=== PATIENT | female | born 1945 | race African-American/Black ===

== ENCOUNTER → 2017-05-05 | Outpatient (CLI) | payer MEDICARE, MEDICAID ==
[2017-05-05 13:14] LABS: ALANINE AMINOTRANSFERASE 27 U/L (9-52); ALBUMIN 4.4 g/dL (3.5-5.0); ALKALINE PHOSPHATASE 103 U/L (38-126); ANION GAP 14 (5-19); ASPARTATE AMINO TRANSFERASE 16 U/L (14-36); BILIRUBIN,DIRECT 0.4 mg/dL (0.0-0.4); BILIRUBIN,TOTAL 0.7 mg/dL (0.2-1.3); BLOOD UREA NITROGEN 15 mg/dL (7-20); CALCIUM 9.7 mg/dL (8.4-10.2); CARBON DIOXIDE 31 mmol/L (22-30); CHLORIDE 98 mmol/L (98-107); CHOLESTEROL 122.49 mg/dL (0-200); CREATININE RESULT 1.08 mg/dL (0.52-1.25); Direct HDL 50 mg/dL (>40); GLUCOSE 154 mg/dL (75-110); POTASSIUM 4.6 mmol/L (3.6-5.0); SODIUM 142.8 mmol/L (137-145); TOTAL PROTEIN 7.8 g/dL (6.3-8.2); TRIGLYCERIDES 111 mg/dL (<150)
[2017-05-05 13:25] LABS: DIRECT LDL 46 mg/dL (<100)
== END ==
LOC: OD 10:29
PROVIDERS: ATTEND Internal Medicine
DX: E78.2 Mixed hyperlipidemia (principal); Z68.42 Body mass index [BMI] 45.0-49.9, adult; I10 Essential (primary) hypertension; E11.43 Type 2 diabetes mellitus with diabetic autonomic (poly)neuropathy; Z79.899 Other long term (current) drug therapy
CPT/HCPCS: 36415; 80053; 80061; 83036

== ENCOUNTER → 2017-05-11 | Outpatient (CLI) | payer MEDICARE, MEDICAID ==
[2017-05-11 10:12] LABS: ABSOLUTE EOSINOPHILS # (AUTO) 0.3 10^3/uL (0.0-0.6); ABSOLUTE MONOCYTES (AUTO) 0.8 10^3/uL (0.1-1.4); BASOPHILS % (AUTO) 0.4 % (0-2); EOSINOPHILS % (AUTO) 2.9 % (0-6); HEMATOCRIT 37.2 % (36.0-47.0); HEMOGLOBIN 11.9 g/dL (12.0-15.5); HGB HCT DIFFERENCE -1.5; LYMPHOCYTES % (AUTO) 36.3 % (13-45); MEAN CORPUSCULAR HEMOGLOBIN 27.3 pg (27.0-33.4); MEAN CORPUSCULAR HGB CONC 32.1 g/dL (32.0-36.0); MEAN CORPUSCULAR VOLUME 85 fl (80-97); MONOCYTES % (AUTO) 6.9 % (3-13); RED BLOOD COUNT 4.37 10^6/uL (3.72-5.28); RED CELL DISTRIBUTION WIDTH 15.8 % (11.5-14.0); SEGMENTED NEUTROPHILS % (AUTO) 53.5 % (42-78); WHITE BLOOD COUNT 11.1 10^3/uL (4.0-10.5)
== END ==
LOC: OD 09:13
PROVIDERS: ATTEND Internal Medicine
DX: E78.2 Mixed hyperlipidemia (principal); I10 Essential (primary) hypertension; E11.43 Type 2 diabetes mellitus with diabetic autonomic (poly)neuropathy; Z68.42 Body mass index [BMI] 45.0-49.9, adult; Z79.899 Other long term (current) drug therapy
CPT/HCPCS: 36415; 82043; 85025

== ENCOUNTER → 2017-09-29 | Outpatient (CLI) | payer MEDICARE, MEDICAID ==
--- NOTE | 2017-09-29 15:22 | RADIOLOGY REPORT (SQ) ---
EXAM DESCRIPTION: CT LUNG CANCER SCREENING COMPLETED DATE/TIME: 09/29/2017 2:37 pm REASON FOR STUDY: Z87.891 PERSONAL HISTORY OF NICOTINE DEPENDENCE Z87.891 PERSONAL HISTORY OF NICOT INE DEPENDENCE Has the patient had a Chest CT scan within the past year? No. Was the patient offered tobacco cessation counseling? Yes. Was the patient engaged in shared decision making for this test? Yes. Does the patient have signs or symptoms of Lung Cancer? No. Is the patient a smoker? No. How many packs per year? 365. How many years since quitting smoking? 6. Patients age: 72. COMPARISON: None. TECHNIQUE: Low Dose CT scan performed of the chest without intravenous contrast for purposes of scre ening for lung cancer. Images reviewed with lung, soft tissue and bone windows. Reconstructed coron al and sagittal MPR images reviewed. All images stored on PACS. All CT scanners at this facility use dose modulation, iterative reconstruction, and/or weight based d osing when appropriate to reduce radiation dose to as low as reasonably achievable (ALARA). [facility]: Dose Right [facility]: CareDose [facility]: Dose Right [facility]: Teradose 4D [facility]: Yoogaia RADIATION DOSE: mGy. . LIMITATIONS: None FINDINGS: LUNGS AND PLEURA: No masses or nodules. No pleural effusions or calcifications. No pne umothorax. No scarring or interstitial changes. HILAR AND MEDIASTINAL STRUCTURES: No identified masses. No abnormal nodes. HEART AND VASCULAR STRUCTURES: No aortic aneurysm. No pericardial effusion. No cardiac devices. CORONARY ARTERY CALCIFICATIONS: No significant calcifications. UPPER ABDOMEN, THYROID, BONES, OTHER SOFT TISSUES: No significant findings. IMPRESSION: NO SIGNIFICANT FINDING IN THE LUNGS ON NON-CONTRASTED CHEST CT. NO OTHER CLINICALLY SIGNIFICANT/POTENTIALLY CLINICALLY SIGNIFICANT FINDINGS LUNGRADS: LUNGRADS: 1 NEGATIVE. NO NODULES, OR DEFINITELY BENIGN NODULES MODIFIER: NONE RECOMMENDATION: Continue annual screening with LDCT in 12 months. COMMENT: CRITERIA: No lung nodules. Nodules with specific calcifications: Complete, central, popcorn, concentric rings and fat containin g nodules. TECHNICAL DOCUMENTATION: JOB ID: [id number] Quality ID # [id number]: Final reports with documentation of one or more dose reduction techniques (e.g., Au tomated exposure control, adjustment of the mA and/or kV according to patient size, use of iterative reconstruction technique) 2010 [facility] [place] Radiology Reading location - IP/workstation name: [email or web address]
== END ==
LOC: RAD 14:54
PROVIDERS: ATTEND Physician Assistant
DX: R06.00 Dyspnea, unspecified (principal); Z87.891 Personal history of nicotine dependence
CPT/HCPCS: G0297

== ENCOUNTER → 2017-10-03 | Outpatient (CLI) | payer MEDICARE, OTHER, MEDICAID ==
[2017-10-03 16:39] LABS: ABSOLUTE BASOPHILS # (AUTO) 0.1 10^3/uL (0.0-0.2); ABSOLUTE EOSINOPHILS # (AUTO) 0.3 10^3/uL (0.0-0.6); ABSOLUTE LYMPHOCYTES (AUTO) 2.4 10^3/uL (0.5-4.7); ABSOLUTE MONOCYTES (AUTO) 0.8 10^3/uL (0.1-1.4); EOSINOPHILS % (AUTO) 2.5 % (0-6); HEMATOCRIT 35.2 % (36.0-47.0); HEMOGLOBIN 11.1 g/dL (12.0-15.5); LYMPHOCYTES % (AUTO) 20.4 % (13-45); MEAN CORPUSCULAR HEMOGLOBIN 26.7 pg (27.0-33.4); MEAN CORPUSCULAR HGB CONC 31.5 g/dL (32.0-36.0); MEAN CORPUSCULAR VOLUME 85 fl (80-97); MONOCYTES % (AUTO) 6.8 % (3-13); PLATELET COUNT 158 10^3/uL (150-450); RED BLOOD COUNT 4.15 10^6/uL (3.72-5.28); RED CELL DISTRIBUTION WIDTH 16.5 % (11.5-14.0); SEGMENTED NEUTROPHILS % (AUTO) 69.3 % (42-78); TOTAL CELLS COUNTED % (AUTO) 100 %; WHITE BLOOD COUNT 11.5 10^3/uL (4.0-10.5)
[2017-10-03 16:40] LABS: ARTERIAL BLOOD BASE EXCESS 3.3 mmol/L; ARTERIAL BLOOD H2CO3 1.38 mmol/L (1.05-1.35); ARTERIAL BLOOD HCO3 28.5 mmol/L (20-26); ARTERIAL BLOOD PCO2 45.8 mmHg (35-45); ARTERIAL BLOOD PH 7.41 (7.35-7.45); ARTERIAL BLOOD TOTAL CO2 29.9 mmol/L (21-25)
[2017-10-03 16:47] LABS: ARTERIAL BLOOD FIO2 ROOM AIR
[2017-10-03 17:03] LABS: ALANINE AMINOTRANSFERASE 22 U/L (9-52); ALBUMIN 3.9 g/dL (3.5-5.0); ALKALINE PHOSPHATASE 89 U/L (38-126); ANION GAP 10 (5-19); ASPARTATE AMINO TRANSFERASE 19 U/L (14-36); BILIRUBIN,DIRECT 0.4 mg/dL (0.0-0.4); BILIRUBIN,TOTAL 0.4 mg/dL (0.2-1.3); BLOOD UREA NITROGEN 12 mg/dL (7-20); CALCIUM 9.2 mg/dL (8.4-10.2); CARBON DIOXIDE 31 mmol/L (22-30); CHLORIDE 101 mmol/L (98-107); CHOLESTEROL 122.14 mg/dL (0-200); GLUCOSE 113 mg/dL (75-110); POTASSIUM 4.1 mmol/L (3.6-5.0); SODIUM 141.7 mmol/L (137-145); TOTAL PROTEIN 7.2 g/dL (6.3-8.2); TRIGLYCERIDES 122 mg/dL (<150)
[2017-10-03 17:13] LABS: DIRECT LDL 52 mg/dL (<100)
[2017-10-04 13:22] LABS: ARTERIAL BLOOD BASE EXCESS 2.8 mmol/L; ARTERIAL BLOOD H2CO3 1.34 mmol/L (1.05-1.35); ARTERIAL BLOOD HCO3 27.8 mmol/L (20-26); ARTERIAL BLOOD O2 SATURATION 88.6 % (94-98); ARTERIAL BLOOD PCO2 44.4 mmHg (35-45); ARTERIAL BLOOD PH 7.41 (7.35-7.45); ARTERIAL BLOOD PO2 54.5 mmHg (80-100); ARTERIAL BLOOD TOTAL CO2 29.1 mmol/L (21-25)
[2017-10-04 13:23] LABS: ARTERIAL BLOOD FIO2 2 L
== END ==
LOC: OD 14:56
PROVIDERS: ATTEND Family Medicine Geriatric Medicine
DX: E11.40 Type 2 diabetes mellitus with diabetic neuropathy, unspecified (principal); E87.6 Hypokalemia; E66.9 Obesity, unspecified; I10 Essential (primary) hypertension; Z29.9 Encounter for prophylactic measures, unspecified; Z68.45 Body mass index [BMI] 70 or greater, adult; R06.02 Shortness of breath; R05 Cough
CPT/HCPCS: 36415; 36600; 80053; 80061; 82803; 83036; 83735; 84443; 85025; 87070; 87205

== ENCOUNTER 2017-11-12 17:57 | Emergency (ER) | payer MEDICARE, MEDICAID ==
--- NOTE | 2017-11-12 18:39 | ER Document Report ---
ED Cardiac - General Mode of Arrival: Ambulatory Information source: Patient TRAVEL OUTSIDE OF THE U.S. IN LAST 30 DAYS: No <MARTHA ALCALA - Last Filed: 11/12/17 18:57> <AZAEL HASSAN - Last Filed: 11/12/17 21:38> - General Chief Complaint: Arrhythmia Stated Complaint: BLOOD PRESSURE CONCERN Time Seen by Provider: 11/12/17 18:24 Notes: Patient is a 72-year-old female who presents to the emergency department today with complaints of a heart racing sensation prior to arrival. Patient states her heart rate was in the 140s prior to arrival here. Patient is status post ablation as she has a history of A. fib. Patient states that her chest feels tight with associated shortness of breath. Patient states she feels that her heart rate is much lower now and her symptoms have essentially resolved. Patient states prior to arrival here, her symptoms felt similar to when she had a stress test in the past. (MARTHA ALCALA) - Related Data Allergies/Adverse Reactions: penicillinase Allergy (Verified 11/12/17 17:57) Penicillins Allergy (Verified 11/12/17 17:57) Past Medical History - General Information source: Patient - Social History Smoking Status: Never Smoker Cigarette use (# per day): No Chew tobacco use (# tins/day): No Frequency of alcohol use: None Drug Abuse: None Lives with: Family Family History: Reviewed & Not Pertinent Patient has suicidal ideation: No Patient has homicidal ideation: No - Past Medical History Cardiac Medical History: Reports: Hx Atrial Fibrillation, Hx Hypercholesterolemia, Hx Hypertension Pulmonary Medical History: Reports: Hx COPD Endocrine Medical History: Reports: Hx Diabetes Mellitus Type 2 Past Surgical History: Reports: Hx Cardiac Catheterization, Hx Cholecystectomy, Hx Orthopedic Surgery <MARTHA ALCALA - Last Filed: 11/12/17 18:57> Review of Systems - Review of Systems Constitutional: No symptoms reported EENT: No symptoms reported Cardiovascular: See HPI, Chest pain, Palpitations, Heart racing Respiratory: See HPI, Short of breath Gastrointestinal: No symptoms reported Genitourinary: No symptoms reported Female Genitourinary: No symptoms reported Musculoskeletal: No symptoms reported Skin: No symptoms reported Hematologic/Lymphatic: No symptoms reported Neurological/Psychological: No symptoms reported -: Yes All other systems reviewed and negative <MARTHA ALCALA - Last Filed: 11/12/17 18:57> - Vital signs Vitals: Temp Pulse Resp BP Pulse Ox 98 F 53 L 18 132/82 H 88 L 11/12/17 18:06 11/12/17 18:06 11/12/17 18:06 11/12/17 18:06 11/12/17 18:06 Course - Laboratory Result Diagrams: 11/12/17 18:15 11/12/17 18:15 <MARTHA ALCALA - Last Filed: 11/12/17 18:57> - Laboratory Result Diagrams: 11/12/17 18:15 11/12/17 18:15 <AZAEL HASSAN - Last Filed: 11/12/17 21:38> - Re-evaluation Re-evalutation: 11/12/17 18:53 Face to face consultation with Dr. Gonzalez (MARTHA ALCALA) 11/12/17 21:00 Patient is a 72-year-old female who presents with rapid A. fib on EKG that is now resolved spontaneously. Patient has had this before and had an ablation a number of years ago in [place]. Patient had some chest pressure but no pain. Patient is on 3 L of oxygen all the time for COPD. Denies any new medication changes. Patient was seen by Dr. Gonzalez in the emergency department. Recommends increasing metoprolol succinate to 100 twice daily. No other changes. He would like to see the patient in his office early next week. Patient is agreeable to this plan. She is feeling much better and is comfortable going home. She will return if she has any chest pain, rapid heart rate, difficulty breathing, or other concerns. Son present for discussion. Stable for discharge. (AZAEL HASSAN) - Vital Signs Vital signs: Temp Pulse Resp BP Pulse Ox 98 F 47 L 18 125/101 H 95 11/12/17 18:06 11/12/17 18:07 11/12/17 18:20 11/12/17 18:20 11/12/17 18:46 - Laboratory Laboratory results interpreted by me: 11/12/17 11/12/17 18:15 18:15 WBC 11.7 H Hgb 11.5 L MCH 26.8 L MCHC 31.5 L RDW 16.1 H Absolute Neutrophils 8.9 H Sodium 145.5 H Est GFR (Non-Af Amer) 55 L Glucose 138 H Critical Care Note - Critical Care Note Total time excluding time spent on procedures (mins): 35 - Evaluation and management of rapid A. fib, consultation with specialist, coordination of follow -up, counseling of patient family <AZAEL HASSAN - Last Filed: 11/12/17 21:38> Discharge <MARTHA ALCALA - Last Filed: 11/12/17 18:57> <AZAEL HASSAN - Last Filed: 11/12/17 21:38> - Discharge Clinical Impression: Rapid atrial fibrillation Condition: Stable Disposition: HOME, SELF-CARE Instructions: Atrial Fibrillation ([facility]) Additional Instructions: Please change your metoprolol to 100 twice a day. Please follow-up with Dr. Gonzalez next week on Tuesday or Tuesday. Please call for an appointment. Make sure that you are wearing your oxygen at all times. Prescriptions: Metoprolol Succinate [Toprol XL 100 mg Tablet] 100 mg PO BID #[id number] tab.sr.[id number] Referrals: SHEREEN KEENE MD [Primary Care Provider] - Follow up as needed CONCHIS GONZALEZ MD [ACTIVE STAFF] - Follow up in 3-5 days Scribe Attestation: 11/12/17 21:37 I personally performed the services described in the documentation, reviewed and edited the documentation which was dictated to the scribe in my presence, and it accurately records my words and actions. (AZAEL HASSAN) Scribe Documentation - Scribe Written by Venicee:: Neel Jackson, 11/12/2017 1907 acting as scribe for :: Sumaya <MARTHA ALCALA - Last Filed: 11/12/17 18:57>
[2017-11-12 19:09] LABS: ABSOLUTE BASOPHILS # (AUTO) 0.1 10^3/uL (0.0-0.2); ABSOLUTE EOSINOPHILS # (AUTO) 0.2 10^3/uL (0.0-0.6); ABSOLUTE LYMPHOCYTES (AUTO) 1.8 10^3/uL (0.5-4.7); ABSOLUTE MONOCYTES (AUTO) 0.7 10^3/uL (0.1-1.4); ABSOLUTE NEUT (AUTO) 8.9 10^3/uL (1.7-8.2); BASOPHILS % (AUTO) 0.9 % (0-2); EOSINOPHILS % (AUTO) 1.6 % (0-6); HEMATOCRIT 36.5 % (36.0-47.0); HEMOGLOBIN 11.5 g/dL (12.0-15.5); LYMPHOCYTES % (AUTO) 15.8 % (13-45); MEAN CORPUSCULAR HEMOGLOBIN 26.8 pg (27.0-33.4); MEAN CORPUSCULAR HGB CONC 31.5 g/dL (32.0-36.0); MEAN CORPUSCULAR VOLUME 85 fl (80-97); MONOCYTES % (AUTO) 5.6 % (3-13); PLATELET COUNT 184 10^3/uL (150-450); RED CELL DISTRIBUTION WIDTH 16.1 % (11.5-14.0); SEGMENTED NEUTROPHILS % (AUTO) 76.1 % (42-78); TOTAL CELLS COUNTED % (AUTO) 100 %; WHITE BLOOD COUNT 11.7 10^3/uL (4.0-10.5)
[2017-11-12 19:16] LABS: ALANINE AMINOTRANSFERASE 20 U/L (9-52); ALBUMIN 4.2 g/dL (3.5-5.0); ALKALINE PHOSPHATASE 92 U/L (38-126); ANION GAP 16 (5-19); ASPARTATE AMINO TRANSFERASE 27 U/L (14-36); BILIRUBIN,DIRECT 0.4 mg/dL (0.0-0.4); BILIRUBIN,TOTAL 0.6 mg/dL (0.2-1.3); BLOOD UREA NITROGEN 18 mg/dL (7-20); CALCIUM 9.4 mg/dL (8.4-10.2); CARBON DIOXIDE 29 mmol/L (22-30); CHLORIDE 101 mmol/L (98-107); CREATINE KINASE 66 U/L (30-135); GLUCOSE 138 mg/dL (75-110); POTASSIUM 3.7 mmol/L (3.6-5.0); SODIUM 145.5 mmol/L (137-145); TOTAL PROTEIN 8.1 g/dL (6.3-8.2)
[2017-11-12 19:27] LABS: CREATINE KINASE MB 0.54 ng/mL (<4.55)
[2017-11-12 19:32] LABS: TROPONIN I < 0.012 ng/mL
--- NOTE | 2017-11-12 19:57 | RADIOLOGY REPORT (SQ) ---
EXAM DESCRIPTION: CHEST SINGLE VIEW COMPLETED DATE/TIME: 11/12/2017 7:01 pm REASON FOR STUDY: CP COMPARISON: 05/08/2015 EXAM PARAMETERS: NUMBER OF VIEWS: One view. TECHNIQUE: Single frontal radiographic view of the chest acquired. RADIATION DOSE: NA LIMITATIONS: None. FINDINGS: LUNGS AND PLEURA: No consolidation, masses or pneumothorax. No pleural effusion. MEDIASTINUM AND HILAR STRUCTURES: Stable. HEART AND VASCULAR STRUCTURES: Heart normal in size. Normal vasculature. BONES: No acute findings. HARDWARE: None in the chest. OTHER: No other significant finding. IMPRESSION: NO ACUTE RADIOGRAPHIC FINDING IN THE CHEST. TECHNICAL DOCUMENTATION: JOB ID: [id number] [place]-72 2010 [employer]- All Rights Reserved Reading location - IP/workstation name: [email or web address]
[2017-11-12 20:20] LABS: APPEARANCE,URINE CLEAR; BILIRUBIN,URINE NEGATIVE (NEGATIVE); COLOR,URINE STRAW; GLUCOSE, URINE NEGATIVE (NEGATIVE); KETONES,URINE NEGATIVE (NEGATIVE); LEUKOCYTE ESTERASE,URINE NEGATIVE (NEGATIVE); NITRITE,URINE NEGATIVE (NEGATIVE); PROTEIN,URINE NEGATIVE (NEGATIVE); URINE SPECIFIC GRAVITY 1.004; UROBILINOGEN,URINE NEGATIVE mg/dL (<2.0)
[2017-11-12 21:38] VITALS: BP 113/69
--- NOTE | 2017-11-13 08:02 | EKG REPORT ---
SEVERITY:- NORMAL ECG - SINUS RHYTHM : Confirmed by: Stefan Kahn MD 13-Nov-2017 08:02:14
--- NOTE | 2017-11-13 08:05 | EKG REPORT ---
SEVERITY:- ABNORMAL ECG - A-FLUTTER W/ PREDOM 2:1 AV BLOCK, A-RATE 263 BORDERLINE PROLONGED QT INTERVAL : Confirmed by: Stefan Kahn MD 13-Nov-2017 08:05:22
== END 2017-11-12 21:38 | disposition home or self-care (01) ==
LOC: ER 17:57
DX: I48.91 Unspecified atrial fibrillation (principal); J44.9 Chronic obstructive pulmonary disease, unspecified; Z99.81 Dependence on supplemental oxygen; R06.02 Shortness of breath; R07.89 Other chest pain; I10 Essential (primary) hypertension; E11.9 Type 2 diabetes mellitus without complications; Z98.890 Other specified postprocedural states; Z88.0 Allergy status to penicillin; Z79.899 Other long term (current) drug therapy
CPT/HCPCS: 36415; 71045; 80053; 81001; 82550; 82553; 84484; 85025; 93005; 93010; 99291

== ENCOUNTER → 2017-11-28 | Outpatient (CLI) | payer MEDICARE, MEDICAID ==
[2017-11-28 15:26] LABS: ARTERIAL BLOOD BASE EXCESS 4.7 mmol/L; ARTERIAL BLOOD FIO2 3L; ARTERIAL BLOOD H2CO3 1.46 mmol/L (1.05-1.35); ARTERIAL BLOOD HCO3 30.1 mmol/L (20-26); ARTERIAL BLOOD O2 SATURATION 92.3 % (94-98); ARTERIAL BLOOD PCO2 48.6 mmHg (35-45); ARTERIAL BLOOD PH 7.41 (7.35-7.45); ARTERIAL BLOOD PO2 63.6 mmHg (80-100); ARTERIAL BLOOD TOTAL CO2 31.6 mmol/L (21-25)
[2017-11-28 15:29] LABS: ABSOLUTE BASOPHILS # (AUTO) 0.1 10^3/uL (0.0-0.2); ABSOLUTE EOSINOPHILS # (AUTO) 0.3 10^3/uL (0.0-0.6); ABSOLUTE LYMPHOCYTES (AUTO) 1.5 10^3/uL (0.5-4.7); ABSOLUTE MONOCYTES (AUTO) 0.6 10^3/uL (0.1-1.4); EOSINOPHILS % (AUTO) 3.2 % (0-6); HEMATOCRIT 35.4 % (36.0-47.0); HEMOGLOBIN 11.2 g/dL (12.0-15.5); LYMPHOCYTES % (AUTO) 15.5 % (13-45); MEAN CORPUSCULAR HEMOGLOBIN 27.2 pg (27.0-33.4); MEAN CORPUSCULAR HGB CONC 31.7 g/dL (32.0-36.0); MEAN CORPUSCULAR VOLUME 86 fl (80-97); MONOCYTES % (AUTO) 6.5 % (3-13); PLATELET COUNT 250 10^3/uL (150-450); RED BLOOD COUNT 4.12 10^6/uL (3.72-5.28); SEGMENTED NEUTROPHILS % (AUTO) 73.8 % (42-78); TOTAL CELLS COUNTED % (AUTO) 100 %; WHITE BLOOD COUNT 9.5 10^3/uL (4.0-10.5)
[2017-11-28 15:46] LABS: ANION GAP 13 (5-19); BLOOD UREA NITROGEN 17 mg/dL (7-20); CALCIUM 9.3 mg/dL (8.4-10.2); CARBON DIOXIDE 30 mmol/L (22-30); CHLORIDE 101 mmol/L (98-107); GLUCOSE 133 mg/dL (75-110); POTASSIUM 4.4 mmol/L (3.6-5.0); SODIUM 144.2 mmol/L (137-145)
== END ==
LOC: OD 14:32
PROVIDERS: ATTEND Family Medicine Geriatric Medicine
DX: I10 Essential (primary) hypertension (principal); Z79.899 Other long term (current) drug therapy; J44.9 Chronic obstructive pulmonary disease, unspecified
CPT/HCPCS: 36415; 36600; 80048; 82803; 83036; 85025

== ENCOUNTER → 2018-03-20 | Outpatient (CLI) | payer MEDICARE, MEDICAID ==
[2018-03-20 18:25] LABS: ABSOLUTE BASOPHILS # (AUTO) 0.2 10^3/uL (0.0-0.2); ABSOLUTE EOSINOPHILS # (AUTO) 0.4 10^3/uL (0.0-0.6); ABSOLUTE LYMPHOCYTES (AUTO) 2.4 10^3/uL (0.5-4.7); ABSOLUTE MONOCYTES (AUTO) 0.9 10^3/uL (0.1-1.4); ABSOLUTE NEUT (AUTO) 7.3 10^3/uL (1.7-8.2); BASOPHILS % (AUTO) 1.4 % (0-2); EOSINOPHILS % (AUTO) 3.8 % (0-6); HEMATOCRIT 32.5 % (36.0-47.0); HEMOGLOBIN 10.5 g/dL (12.0-15.5); LYMPHOCYTES % (AUTO) 21.5 % (13-45); MEAN CORPUSCULAR HEMOGLOBIN 28.1 pg (27.0-33.4); MEAN CORPUSCULAR HGB CONC 32.2 g/dL (32.0-36.0); MEAN CORPUSCULAR VOLUME 88 fl (80-97); MONOCYTES % (AUTO) 7.8 % (3-13); PLATELET COUNT 260 10^3/uL (150-450); RED BLOOD COUNT 3.72 10^6/uL (3.72-5.28); SEGMENTED NEUTROPHILS % (AUTO) 65.5 % (42-78); TOTAL CELLS COUNTED % (AUTO) 100 %; WHITE BLOOD COUNT 11.1 10^3/uL (4.0-10.5)
[2018-03-20 18:46] LABS: ALANINE AMINOTRANSFERASE 14 U/L (9-52); ANION GAP 15 (5-19); BLOOD UREA NITROGEN 41 mg/dL (7-20); CALCIUM 9.4 mg/dL (8.4-10.2); CARBON DIOXIDE 28 mmol/L (22-30); CHLORIDE 101 mmol/L (98-107); CHOLESTEROL 99.95 mg/dL (0-200); GLUCOSE 100 mg/dL (75-110); POTASSIUM 4.8 mmol/L (3.6-5.0); SODIUM 143.9 mmol/L (137-145); TRIGLYCERIDES 78 mg/dL (<150)
[2018-03-20 18:57] LABS: DIRECT LDL 34 mg/dL (<100)
== END ==
LOC: LAB 17:58
PROVIDERS: ATTEND Family Medicine Geriatric Medicine
DX: N18.3 Chronic kidney disease, stage 3 (moderate) (principal); E11.40 Type 2 diabetes mellitus with diabetic neuropathy, unspecified; J44.9 Chronic obstructive pulmonary disease, unspecified; E78.5 Hyperlipidemia, unspecified; Z79.899 Other long term (current) drug therapy
CPT/HCPCS: 36415; 80048; 80061; 82306; 83036; 84460; 85025

== ENCOUNTER → 2018-05-11 | Outpatient (CLI) | payer MEDICARE, MEDICAID ==
--- NOTE | 2018-05-11 15:11 | WOMENS IMAGING REPORT ---
EXAM DESCRIPTION: BILAT SCREENING MAMMO W/CAD COMPLETED DATE/TIME: 05/11/2018 10:16 am REASON FOR STUDY: ROUTINE SCREENING MAMMOGRAM Z12.31 Z12.31 ENCNTR SCREEN MAMMOGRAM FOR MALIGNANT N EOPLASM OF TOMMY COMPARISON: None. TECHNIQUE: Standard craniocaudal and mediolateral oblique views of each breast recorded using FilmTracka l acquisition. LIMITATIONS: None. FINDINGS: No masses, calcifications or architectural distortion. No areas of suspicion. Read with the assistance of CAD. .[facility] - R2 Cenova Version 1.3 .[facility] Imaging - R2 Cenova Version 1.[address] Imaging - R2 Cenova Version 2.4 .[facility]2 Cenova Version 2.4 .[facility] - R2 [employer] Version 9.2 IMPRESSION: NORMAL MAMMOGRAM. BIRADS 1. BREAST DENSITY: a. The breasts are almost entirely fatty. BIRAD: 1 NEGATIVE RECOMMENDATION: ROUTINE SCREENING Please continue yearly bilateral screening mammography/tomosynthesis in April 2019 COMMENT: The patient has been notified of the results by letter per SA requirements. Additional no tification policies are in place for contacting patient with suspicious or incomplete findings. Quality ID #[id number]: The [employer] recommends an annual screening mammogram for women aged 40 years or over. This facility utilizes a reminder system to ensure that all patients receive reminder letters, and/or direct phone calls for appointments. This includes reminders for routine scr eening mammograms, diagnostic mammograms, or other Breast Imaging Interventions when appropriate. Th is patient will be placed in the appropriate reminder system. The [employer] (ACR) has developed recommendations for screening MRI of the breast s in certain patient populations, to be used in conjunction with mammography. Breast MRI surveillanc e may be appropriate for women with more than 20% lifetime risk of developing breast cancer as deter mined by genetic testing, significant family history of the disease, or history of mantle radiation f or Hodgkins Disease. ACR Practice Guidelines 2008. TECHNICAL DOCUMENTATION: FINDING NUMBER: (1) ASSESSMENT: (1) JOB ID: [id number] [employer]- All Rights Reserved Reading location - IP/workstation name: [email or web address]
== END ==
LOC: WI 09:32
PROVIDERS: ATTEND Family Medicine Geriatric Medicine
DX: Z12.31 Encounter for screening mammogram for malignant neoplasm of breast (principal)
CPT/HCPCS: 77067

== ENCOUNTER → 2018-09-05 | Outpatient (CLI) | payer MEDICARE, MEDICAID ==
--- NOTE | 2018-09-05 15:22 | RADIOLOGY REPORT (SQ) ---
EXAM DESCRIPTION: U/S RETROPERITON (RENAL/AORTA) COMPLETED DATE/TIME: 09/05/2018 3:04 pm REASON FOR STUDY: N18.2 CHRONIC KIDNEY DISEASE, STAGE 3 (MODERATE) N18.3 CHRONIC KIDNEY DISEASE, ST AGE 3 (MODERATE) COMPARISON: 09/08/2015. TECHNIQUE: Dynamic and static grayscale images acquired of the kidneys and bladder and recorded on P ACS. Additional selected color Doppler and spectral images recorded. LIMITATIONS: None. FINDINGS: RIGHT KIDNEY: Normal size. Normal echogenicity. No solid or suspicious masses. No hydronep hrosis. No calcifications. LEFT KIDNEY: Normal size. Normal echogenicity. No solid or suspicious masses. No hydronephrosis. No calcifications. BLADDER: Incompletely filled. No masses. OTHER FINDINGS: No other significant finding. IMPRESSION: NORMAL RENAL AND BLADDER ULTRASOUND. TECHNICAL DOCUMENTATION: JOB ID: [id number] [employer]- All Rights Reserved Reading location - IP/workstation name: [email or web address]
== END ==
LOC: RAD 15:53
PROVIDERS: ATTEND Internal Medicine Nephrology
DX: N18.2 Chronic kidney disease, stage 2 (mild) (principal)
CPT/HCPCS: 76770

== ENCOUNTER → 2018-09-19 | Outpatient (CLI) | payer MEDICARE, MEDICAID, OTHER ==
[2018-09-19 19:23] LABS: ABSOLUTE BASOPHILS # (AUTO) 0.1 10^3/uL (0.0-0.2); ABSOLUTE EOSINOPHILS # (AUTO) 0.2 10^3/uL (0.0-0.6); ABSOLUTE LYMPHOCYTES (AUTO) 1.6 10^3/uL (0.5-4.7); ABSOLUTE MONOCYTES (AUTO) 0.6 10^3/uL (0.1-1.4); ABSOLUTE NEUT (AUTO) 6.9 10^3/uL (1.7-8.2); BASOPHILS % (AUTO) 0.8 % (0-2); EOSINOPHILS % (AUTO) 2.6 % (0-6); HEMATOCRIT 32.3 % (36.0-47.0); HEMOGLOBIN 10.5 g/dL (12.0-15.5); LYMPHOCYTES % (AUTO) 17.1 % (13-45); MEAN CORPUSCULAR HEMOGLOBIN 27.9 pg (27.0-33.4); MEAN CORPUSCULAR HGB CONC 32.6 g/dL (32.0-36.0); MEAN CORPUSCULAR VOLUME 86 fl (80-97); MONOCYTES % (AUTO) 5.9 % (3-13); PLATELET COUNT 270 10^3/uL (150-450); RED BLOOD COUNT 3.77 10^6/uL (3.72-5.28); RED CELL DISTRIBUTION WIDTH 15.1 % (11.5-14.0); SEGMENTED NEUTROPHILS % (AUTO) 73.6 % (42-78); TOTAL CELLS COUNTED % (AUTO) 100 %; WHITE BLOOD COUNT 9.3 10^3/uL (4.0-10.5)
[2018-09-19 19:26] LABS: ABSOLUTE BASOPHILS # (AUTO) 0.1 10^3/uL (0.0-0.2); ABSOLUTE EOSINOPHILS # (AUTO) 0.2 10^3/uL (0.0-0.6); ABSOLUTE LYMPHOCYTES (AUTO) 1.6 10^3/uL (0.5-4.7); ABSOLUTE MONOCYTES (AUTO) 0.6 10^3/uL (0.1-1.4); ABSOLUTE NEUT (AUTO) 6.9 10^3/uL (1.7-8.2); BASOPHILS % (AUTO) 0.8 % (0-2); EOSINOPHILS % (AUTO) 2.6 % (0-6); HEMATOCRIT 32.3 % (36.0-47.0); HEMOGLOBIN 10.5 g/dL (12.0-15.5); LYMPHOCYTES % (AUTO) 17.1 % (13-45); MEAN CORPUSCULAR HEMOGLOBIN 27.9 pg (27.0-33.4); MEAN CORPUSCULAR HGB CONC 32.6 g/dL (32.0-36.0); MEAN CORPUSCULAR VOLUME 86 fl (80-97); MONOCYTES % (AUTO) 5.9 % (3-13); PLATELET COUNT 270 10^3/uL (150-450); RED BLOOD COUNT 3.77 10^6/uL (3.72-5.28); RED CELL DISTRIBUTION WIDTH 15.1 % (11.5-14.0); SEGMENTED NEUTROPHILS % (AUTO) 73.6 % (42-78); TOTAL CELLS COUNTED % (AUTO) 100 %; WHITE BLOOD COUNT 9.3 10^3/uL (4.0-10.5)
[2018-09-19 19:33] LABS: APPEARANCE,URINE CLEAR; BILIRUBIN,URINE NEGATIVE (NEGATIVE); COLOR,URINE STRAW; GLUCOSE, URINE NEGATIVE (NEGATIVE); KETONES,URINE NEGATIVE (NEGATIVE); LEUKOCYTE ESTERASE,URINE NEGATIVE (NEGATIVE); NITRITE,URINE NEGATIVE (NEGATIVE); PROTEIN,URINE NEGATIVE (NEGATIVE); URINE SPECIFIC GRAVITY 1.006; UROBILINOGEN,URINE NEGATIVE mg/dL (<2.0)
[2018-09-19 19:46] LABS: ALANINE AMINOTRANSFERASE 27 U/L (9-52); ALBUMIN 4.7 g/dL (3.5-5.0); ALKALINE PHOSPHATASE 91 U/L (38-126); ANION GAP 15 (5-19); ASPARTATE AMINO TRANSFERASE 19 U/L (14-36); BILIRUBIN,DIRECT 0.2 mg/dL (0.0-0.4); BILIRUBIN,TOTAL 0.5 mg/dL (0.2-1.3); BLOOD UREA NITROGEN 31 mg/dL (7-20); CALCIUM 9.7 mg/dL (8.4-10.2); CARBON DIOXIDE 29 mmol/L (22-30); CHLORIDE 96 mmol/L (98-107); CHOLESTEROL 118.91 mg/dL (0-200); GLUCOSE 90 mg/dL (75-110); POTASSIUM 4.6 mmol/L (3.6-5.0); SODIUM 139.7 mmol/L (137-145); TOTAL PROTEIN 7.8 g/dL (6.3-8.2); TRIGLYCERIDES 122 mg/dL (<150)
[2018-09-19 19:57] LABS: DIRECT LDL 52 mg/dL (<100)
[2018-09-19 20:25] LABS: IRON(TIBC) 38.9 ug/dL (37-170)
[2018-09-19 21:11] LABS: ALANINE AMINOTRANSFERASE 27 U/L (9-52); ALBUMIN 4.7 g/dL (3.5-5.0); ALKALINE PHOSPHATASE 91 U/L (38-126); ANION GAP 15 (5-19); ASPARTATE AMINO TRANSFERASE 19 U/L (14-36); BILIRUBIN,DIRECT 0.2 mg/dL (0.0-0.4); BILIRUBIN,TOTAL 0.5 mg/dL (0.2-1.3); BLOOD UREA NITROGEN 31 mg/dL (7-20); CALCIUM 9.7 mg/dL (8.4-10.2); CARBON DIOXIDE 29 mmol/L (22-30); CHLORIDE 96 mmol/L (98-107); GLUCOSE 90 mg/dL (75-110); POTASSIUM 4.6 mmol/L (3.6-5.0); SODIUM 139.7 mmol/L (137-145); TOTAL PROTEIN 7.8 g/dL (6.3-8.2)
[2018-09-21 11:40] LABS: CREATININE URINE 23.8 mg/dL (Not Estab.); MICROALBUMIN URINE 3.9 ug/mL (Not Estab.)
[2018-09-21 16:39] LABS: ALBUMIN 2 3.9 g/dL (2.9-4.4); BETA GLOBULINS 1.2 g/dL (0.7-1.3); GAMMA GLOBULIN 1.5 g/dL (0.4-1.8); MONOCLONAL SPIKE Not Observed g/dL (Not Observ); PROTEIN TOTAL SERUM 7.9 g/dL (6.0-8.5)
== END ==
LOC: LAB 18:52
PROVIDERS: ATTEND Internal Medicine Nephrology
DX: E78.5 Hyperlipidemia, unspecified (principal); E11.41 Type 2 diabetes mellitus with diabetic mononeuropathy; N18.3 Chronic kidney disease, stage 3 (moderate); D64.9 Anemia, unspecified; I12.9 Hypertensive chronic kidney disease with stage 1 through stage 4 chronic kidney disease, or unspecified chronic kidney disease; Z79.899 Other long term (current) drug therapy
CPT/HCPCS: 36415; 80053; 80061; 81001; 82043; 82570; 82728; 83036; 83540; 83550; 83735; 84165; 84443; 85025

== ENCOUNTER → 2018-12-20 | Outpatient (CLI) | payer MEDICARE, MEDICAID ==
[2018-12-20 15:12] LABS: HEMATOCRIT 29.6 % (36.0-47.0); HEMOGLOBIN 9.4 g/dL (12.0-15.5); MEAN CORPUSCULAR HEMOGLOBIN 26.7 pg (27.0-33.4); MEAN CORPUSCULAR HGB CONC 31.7 g/dL (32.0-36.0); MEAN CORPUSCULAR VOLUME 84 fl (80-97); PLATELET COUNT 271 10^3/uL (150-450); RED BLOOD COUNT 3.52 10^6/uL (3.72-5.28); RED CELL DISTRIBUTION WIDTH 16.6 % (11.5-14.0); WHITE BLOOD COUNT 9.4 10^3/uL (4.0-10.5)
[2018-12-20 15:36] LABS: ANION GAP 10 (5-19); BLOOD UREA NITROGEN 22 mg/dL (7-20); CALCIUM 9.4 mg/dL (8.4-10.2); CARBON DIOXIDE 29 mmol/L (22-30); CHLORIDE 103 mmol/L (98-107); GLUCOSE 89 mg/dL (75-110); PHOSPHORUS 4.5 mg/dL (2.5-4.5); POTASSIUM 4.3 mmol/L (3.6-5.0); SODIUM 142.4 mmol/L (137-145)
== END ==
LOC: LAB 14:43
PROVIDERS: ATTEND Internal Medicine Nephrology
DX: N18.3 Chronic kidney disease, stage 3 (moderate) (principal); D63.1 Anemia in chronic kidney disease
CPT/HCPCS: 36415; 80048; 82728; 83540; 83550; 83735; 83970; 84100; 85027

== ENCOUNTER 2018-12-26 13:29 | Outpatient (CLI) | payer MEDICARE, MEDICAID ==
[~2018-12-26 13:29] MED LIST: FERRIC CARBOXYMALTOSE 750 MG in NORMAL SALINE 250 ML IV PRN
[2018-12-26 14:27] VITALS: BP 127/72
== END 2018-12-26 15:20 | disposition home or self-care (01) ==
LOC: II 13:29 → 5TH 14:17 → II 15:20
PROVIDERS: ATTEND Internal Medicine Nephrology
PROC: 3E033GC Introduction of Other Therapeutic Substance into Peripheral Vein, Percutaneous Approach (ICD-10-PCS; principal; 2018-12-26)
DX: D50.8 Other iron deficiency anemias (principal)
CPT/HCPCS: 96365; J7050; J1439

== ENCOUNTER 2019-01-24 08:32 | Outpatient (CLI) | payer MEDICARE, MEDICAID ==
[2019-01-24 08:53] VITALS: BP 108/50
== END 2019-01-24 09:44 | disposition home or self-care (01) ==
LOC: II 08:32 → 5TH 08:34 → II 09:44
PROVIDERS: ATTEND Internal Medicine Nephrology
PROC: 3E033GC Introduction of Other Therapeutic Substance into Peripheral Vein, Percutaneous Approach (ICD-10-PCS; principal; 2019-01-24)
DX: D50.8 Other iron deficiency anemias (principal)
CPT/HCPCS: 96365; J7050; J1439

== ENCOUNTER 2019-02-20 17:47 | Inpatient (IN) | payer MEDICARE, MEDICAID ==
[2019-02-20] MEDS ORDERED: GABAPENTIN 300 MG CAPSULE PO ONE ×2 (18:03→18:18)
--- NOTE | 2019-02-20 18:03 | ER Document Report ---
ED General - General Stated Complaint: LEFT LEG NUMBNESS Time Seen by Provider: 02/20/19 17:56 Primary Care Provider: Mikki KIM MD [ACTIVE STAFF] - Follow up as needed TRAVEL OUTSIDE OF THE U.S. IN LAST 30 DAYS: No - HPI Patient complains to provider of: left foot numbness Onset: Yesterday Notes: 73 y/o presenting to ED for evaluation of left foot numbness that she noted at first yesterday she has had difficulty walking today due to that numbness she denies a h/o cva she denies headache she reports chronic lower back pain no fever, ivdu she denies incontinence of bladder or stool - Related Data Allergies/Adverse Reactions: penicillinase Allergy (Verified 11/12/17 17:57) Penicillins Allergy (Verified 11/12/17 17:57) Past Medical History - Social History Smoking Status: Unknown if Ever Smoked Family History: Reviewed & Not Pertinent - Past Medical History Cardiac Medical History: Reports: Hx Atrial Fibrillation, Hx Hypercholesterolemia, Hx Hypertension Pulmonary Medical History: Reports: Hx COPD Endocrine Medical History: Reports: Hx Diabetes Mellitus Type 2 Renal/ Medical History: Denies: Hx Peritoneal Dialysis Past Surgical History: Reports: Hx Cardiac Catheterization, Hx Cholecystectomy, Hx Orthopedic Surgery Review of Systems - Review of Systems Constitutional: No symptoms reported EENT: No symptoms reported Cardiovascular: No symptoms reported Respiratory: No symptoms reported Gastrointestinal: No symptoms reported Genitourinary: No symptoms reported Female Genitourinary: No symptoms reported Musculoskeletal: No symptoms reported Skin: No symptoms reported Hematologic/Lymphatic: No symptoms reported Neurological/Psychological: Weakness, Numbness Physical Exam - Vital signs Interpretation: Normal - General General appearance: Appears well, Alert - HEENT Head: Normocephalic, Atraumatic Eyes: Normal Pupils: PERRL - Respiratory Respiratory status: No respiratory distress Chest status: Nontender Breath sounds: Normal Chest palpation: Normal - Cardiovascular Rhythm: Regular Heart sounds: Normal auscultation Murmur: No - Abdominal Inspection: Normal Distension: No distension Bowel sounds: Normal Tenderness: Nontender Organomegaly: No organomegaly - Back Back: Normal, Nontender - Extremities General upper extremity: Normal inspection, Nontender, Normal color, Normal ROM, Normal temperature General lower extremity: Normal inspection, Nontender, Normal color, Normal ROM, Normal temperature, Normal weight bearing. No: Cheryl's sign - Neurological Neuro grossly intact: Yes Cognition: Normal Orientation: AAOx4 [place] Coma Scale Eye Opening: Spontaneous [place] Coma Scale Verbal: Oriented [place] Coma Scale Motor: Obeys Commands [place] Coma Scale Total: 15 Speech: Normal Motor strength normal: LUE, RUE, RLE. No: LLE - weak in LLE w/ subjective diminished sensation Sensory: Other - decreased sensation only in foot - Psychological Associated symptoms: Normal affect, Normal mood - Skin Skin Temperature: Warm Skin Moisture: Dry Skin Color: Normal Course - Re-evaluation Re-evalutation: 02/20/19 20:38 patient now states she cannot lift her leg. she had previously only noted difficulty w/ numbness in the foot itself 02/20/19 20:41 patient's labs and DVT study are all negative on re-evaluation she now tells me she cannot lift the leg itself off of the bed she denies any change to back pain, fever, ivdu she denies any upper extremity symptoms or visual or speech changes her LKWT is at some point yesterday so not considered for lytics if cva is present unclear at this point whether this is a spinal cord issue or brain issue 02/20/19 20:53 given concern for possible spinal lesion vs possible cva, i have requested MRI of L spine and brain out of ED to further delineate ongoing pathology. no improvement w/ gabapentin - actually has worsened while here prompting further workup as above. 02/20/19 21:48 patient's imaging results signed out to Dr Louis - Laboratory Result Diagrams: 02/20/19 18:54 02/20/19 18:54 Laboratory results interpreted by me: 02/20/19 02/20/19 18:54 18:54 WBC 11.5 H Hgb 10.4 L Hct 32.8 L MCHC 31.6 L RDW 17.9 H Absolute Neutrophils 8.6 H Creatinine 1.33 H Est GFR ( Amer) 47 L Est GFR (Non-Af Amer) 39 L Discharge - Discharge Clinical Impression: Numbness in left leg, Weakness of left lower extremity Condition: Stable Disposition: OTHER Referrals: Mikki KIM MD [ACTIVE STAFF] - Follow up as needed
[2019-02-20 19:12] LABS: ABSOLUTE BASOPHILS # (AUTO) 0.1 10^3/uL (0.0-0.2); ABSOLUTE EOSINOPHILS # (AUTO) 0.2 10^3/uL (0.0-0.6); ABSOLUTE LYMPHOCYTES (AUTO) 1.6 10^3/uL (0.5-4.7); ABSOLUTE NEUT (AUTO) 8.6 10^3/uL (1.7-8.2); BASOPHILS % (AUTO) 0.9 % (0-2); HEMATOCRIT 32.8 % (36.0-47.0); HEMOGLOBIN 10.4 g/dL (12.0-15.5); LYMPHOCYTES % (AUTO) 13.9 % (13-45); MEAN CORPUSCULAR HEMOGLOBIN 27.4 pg (27.0-33.4); MEAN CORPUSCULAR HGB CONC 31.6 g/dL (32.0-36.0); MEAN CORPUSCULAR VOLUME 87 fl (80-97); MONOCYTES % (AUTO) 8.6 % (3-13); PLATELET COUNT 304 10^3/uL (150-450); RED BLOOD COUNT 3.78 10^6/uL (3.72-5.28); RED CELL DISTRIBUTION WIDTH 17.9 % (11.5-14.0); SEGMENTED NEUTROPHILS % (AUTO) 74.6 % (42-78); TOTAL CELLS COUNTED % (AUTO) 100 %; WHITE BLOOD COUNT 11.5 10^3/uL (4.0-10.5)
[2019-02-20 19:32] LABS: ALBUMIN 3.9 g/dL (3.5-5.0); ALKALINE PHOSPHATASE 88 U/L (38-126); ANION GAP 10 (5-19); ASPARTATE AMINO TRANSFERASE 14 U/L (14-36); BILIRUBIN,DIRECT 0.3 mg/dL (0.0-0.4); BILIRUBIN,TOTAL 0.3 mg/dL (0.2-1.3); BLOOD UREA NITROGEN 20 mg/dL (7-20); CALCIUM 8.9 mg/dL (8.4-10.2); CARBON DIOXIDE 29 mmol/L (22-30); CHLORIDE 101 mmol/L (98-107); GLUCOSE 88 mg/dL (75-110); POTASSIUM 4.4 mmol/L (3.6-5.0); TOTAL PROTEIN 7.3 g/dL (6.3-8.2)
[2019-02-20] MEDS ORDERED: LORAZEPAM INJ 2 MG/1 ML VIAL IV ONE (21:36)
[2019-02-20] MEDS ORDERED: LORAZEPAM 1 MG TABLET PO ONE (21:40)
--- NOTE | 2019-02-20 21:46 | RADIOLOGY REPORT (SQ) ---
3 VIEWS OF LUMBAR SPINE EXAM DATE: 02/20/2019 12:00 AM CDT HISTORY: Lower back pain. COMPARISON: None. FINDINGS: Generalized osteopenia is present. Multilevel degenerative disc disease and facet arthropathy throughout the lumbar spine. Straightening of the normal lumbar lordosis. No definite evidence of acute compression fracture although evaluation is limited. The sacroiliac joints are preserved. IMPRESSION: No acute findings are seen. However, please note that the generalized osteopenia limits evaluation for subtle or nondisplaced fractures. Consider cross-sectional imaging if there is high clinical concern or point tenderness.
--- NOTE | 2019-02-20 21:48 | RADIOLOGY REPORT (SQ) ---
CT HEAD WITHOUT IV CONTRAST EXAM DATE: 02/20/2019 12:00 AM CDT HISTORY: Left leg weakness. COMPARISON: None. TECHNIQUE: CT scan of the brain without IV contrast. This exam was performed according to our departmental dose-optimization program, which includes automated exposure control, adjustment of the mA and/or kV according to patient size and/or use of iterative reconstruction technique. FINDINGS: There are scattered areas of hypoattenuation within the periventricular white matter, which likely represent chronic microvascular ischemia. No evidence of acute infarction, intracranial hemorrhage, extra-axial fluid collection, or midline shift. No air-fluid levels are seen in the paranasal sinuses to suggest acute sinusitis. No depressed skull fracture. IMPRESSION: No acute intracranial findings are seen. Please note that MRI is more sensitive for the evaluation of early infarction, and may be performed if there is high clinical concern.
--- NOTE | 2019-02-20 22:40 | RADIOLOGY REPORT (SQ) ---
EXAM DESCRIPTION: US EXTREMITY VEINS BILATERAL COMPLETED DATE/TME: 02/20/2019 00:00 CLINICAL HISTORY: pain COMPARISON: None Available TECHNIQUE: Duplex images of the common femoral, greater saphenous, superficial femoral, popliteal, peroneal, and posterior tibial veins of both lower extremities were submitted. FINDINGS: The distal superficial femoral veins were not visualized. The right peroneal vein was not visualized. All of the above-mentioned venous structures demonstrate normal spontaneous flow with respiratory phasicity and were fully compressible. IMPRESSION: No sonographic evidence of acute DVT within the lower extremities.
--- NOTE | 2019-02-20 23:24 | RADIOLOGY REPORT (SQ) ---
EXAM DESCRIPTION: MR LUMBAR SPINE WITHOUT IV CONTRAST COMPLETED DATE/TME: 02/20/2019 00:00 CLINICAL HISTORY: 73 years Female left leg weakness/numbness COMPARISON: None. TECHNIQUE: Multiplanar and multisequence imaging obtained through the lumbar spine without IV contrast. FINDINGS: There is straightening of the normal lordosis with mild reversal centered at L3-L4. There is reactive endplate change throughout the lower thoracic and the lumbar spine. Conus ends at L1. There is loss of height and signal in the lumbar disc interspaces consistent with disc desiccation. There is high signal in the L3-L4 disc interspace. There is no adjacent destruction of the or edema in the vertebral bodies.. Recommend correlation with sedimentation rate if there is concern for discitis. There appears to be disc bulging and spinal stenosis at the level of T11-T12 with moderate to severe narrowing of the canal. No axial imaging of this region was provided. Bilateral neural foraminal stenosis is noted. T12-L1: Bilateral neural foraminal stenosis and mild central canal stenosis. L1-L2: Generalized bulging of the disc and facet arthropathy with mild narrowing of the central canal and bilateral neural foraminal stenosis. L2-3: Generalized bulging of the disc and moderate facet arthropathy. There is mild central canal stenosis and bilateral neural foraminal narrowing. L3-4: Generalized bulging of the disc and moderate to marked facet arthropathy. There is mild narrowing of the central canal. There is moderate left and severe right neural foraminal stenosis. L4-5: Bulging of the disc and facet arthropathy with mild narrowing of the central canal. There is moderate left and severe right neural foraminal stenosis. L5-S1: There is a central disc herniation which results in severe narrowing of the central canal. There is severe bilateral neural foraminal stenosis particularly on the left. Disc herniation likely also impinges on the left S1 nerve root. IMPRESSION: Extensive degenerative change in the lumbar spine as delineated above Generalized bulging of the disc and conjunction with a central disc herniation at L5-S1 which results in severe narrowing of the central canal and severe bilateral neural foraminal stenosis worse on the left with probable impingement on the left S1 nerve root High signal in the disc interspace at the L3-L4 level on the right. Suspect that this is related to degenerative change. Recommend correlation with sedimentation rate and postcontrast imaging if there is concern for discitis
--- NOTE | 2019-02-20 23:39 | RADIOLOGY REPORT (SQ) ---
EXAM DESCRIPTION: MR BRAIN WITHOUT IV CONTRAST COMPLETED DATE/TME: 02/20/2019 20:45 CLINICAL HISTORY: left leg weakness/numbness COMPARISON: CT 02/20/2019 TECHNIQUE: Multiplanar images of the brain were obtained without the administration of intravenous contrast FINDINGS: There is generalized atrophy. No midline shift or mass effect. No evidence of restricted diffusion to suggest acute infarct. Symmetric flow voids in the carotid siphons. There is mild periventricular white matter disease and microvascular ischemic change. No evidence of extra-axial fluid collection. IMPRESSION: No evidence to suggest acute infarct Mild age-related atrophy with mild periventricular white matter disease and microvascular ischemic changes
[2019-02-21] MEDS ORDERED: HYDROCODONE/ACETAMINOPHEN 5-325 MG TABLET PO ONE ×2 (01:29→08:40)
--- NOTE | 2019-02-21 02:39 | ER Document Report ---
Doctor's Note Notes: 02/21/19 02:36 The non-contrasted MRI of the head was unremarkable, the lumbar spine showed a high signal in the L3-4 disc interspace and a central disc herniation at L5-S1 level with probable impingement on the left S1 nerve root. These findings do correlate with the patient's description of pain and numbness to the left lateral calf and lateral foot. Reviewing the records from earlier this evening, it was noted that at some point she had developed an inability to lift the left lower extremity, and for this reason the MRIs were done. At this time she is able to lift the leg off of the stretcher barely, but states that it is much improved from previously. She thinks it may be because of the pain medication she got recently as to why she is now able to lift her leg up. A sed rate was done which was 97, there are no previous sed rate for comparison. A CRP will be added to see if there is more evidence that this may be a discitis at the L3-4 level. 02/21/19 03:16 CRP is 38.9, I discussed the MRI scan with the radiologist hollow tile partition erector and she did not think the MRI was that suspect for discitis, however there is no good explanation for the elevated sed rate and CRP, so she recommended a post contrasted MRI to rule out discitis. This was ordered for 7 AM this morning. (RACHEL ANDREW) Discharge - Discharge Admitting Provider: Alejandra (Hospitalist) Unit Admitted: Medical Floor - Discharge Clinical Impression: Numbness in left leg, Weakness of left lower extremity Condition: Stable Disposition: ADMITTED INPATIENT Instructions: Numbness or Paresthesia ([facility]) Additional Instructions: Please call your family physician as soon as possible to arrange an appointment for tomorrow. Referrals: Mikki KIM MD [ACTIVE STAFF] - Follow up as needed
[2019-02-21 02:46] LABS: C-REACTIVE PROTEIN 38.9 mg/L (<10.0)
[2019-02-21] MEDS ORDERED: LORAZEPAM 1 MG TABLET PO ONE ×3 (09:26→13:44)
--- NOTE | 2019-02-21 14:35 | RADIOLOGY REPORT (SQ) ---
EXAM DESCRIPTION: MRI LUMBAR SPINE WITH COMPLETED DATE/TIME: 02/21/2019 2:16 pm REASON FOR STUDY: post contrast MRI discitis L3-4 COMPARISON: Same day MRI TECHNIQUE: Limited postcontrast axial and sagittal T1 weighted postcontrast images were obtained fol lowing MRI without contrast dated 02/20/2019. CONTRAST TYPE AND DOSE: 20 cc mL Dotarem. RENAL FUNCTION: Not indicated. ACR Type II contrast agent associated with few, if any, unconfounded cases of NSF LIMITATIONS: Limited postcontrast imaging. FINDINGS: VISUALIZED UPPER ABDOMEN: Limited evaluation. No acute or suspicious findings suggested. SEGMENTATION: No transitional anatomy. The lowest well-developed disc space is labeled L5-S1. ALIGNMENT: Straightening of the normal lumbar lordosis. VERTEBRAE: Intact. No fractures. BONE MARROW: No marrow replacing process. Mild chronic appearing Modic endplate changes throughout t he lumbar spine. DISC SIGNAL: Mild multilevel disc height loss and disc bulges, better evaluated on prior MRI. POSTERIOR ELEMENTS: Generally intact. No pars defect evident. SOFT TISSUES: No aortic aneurysm seen. No bulky retroperitoneal adenopathy or mass. No paraspinal mas s or fluid. LOWER THORACIC: Incompletely imaged. No stenosis seen. SACRUM: Visualized upper sacrum intact. ENHANCEMENT: Post contrast sagittal axial T1 images were obtained demonstrating no significant enhanc ement within the L3-4 disc space or endplates. OTHER: No other significant findings. IMPRESSION: 1. Postcontrast images without significant abnormal enhancement within the L3-4 disc sp brittany or endplates to suggest discitis. 2. Multilevel degenerative changes and disc bulges, better delineated on recent prior dedicated lumb ar MRI. TECHNICAL DOCUMENTATION: JOB ID: [id number] [employer]- All Rights Reserved Reading location - IP/workstation name: [email or web address]
--- NOTE | 2019-02-21 14:42 | ER Document Report ---
Doctor's Note Notes: 02/21/19 14:40 6 years this patient was turned over to me at the beginning of my shift. In short, this is an obese patient who presented with increased back pain and inability to move her left leg. She had an MRI that was concerning for discitis. She had further blood work, including markedly elevated CRP and sed rate, which could not rule out the diagnosis of discitis. She was waiting for an IV contrasted MRI to be performed. Unfortunately, multiple IVs were placed in the blue. The patient was unable to complete to the IV contrasted MRI during the course of my shift. I was notified approximately 30 minutes after the end of my shift at this MRI was in fact completed, with contrast. It is still waiting read. Patient is able to move her left lower extremity, she states is better when she receives her pain medication. She is [place] on fentanyl and [place] at home. Awaiting final disposition of patient based on MRI findings. If the patient does not have discitis, it is reasonable for her to be discharged home with close follow-up. (DAREN CASE) 02/21/19 16:26 Patient's MRI comes back unremarkable for any acute pathology. I discussed discharge with the patient but she tells me that her left foot is very painful and she is unable to bear weight on it. At this time I will order an x-ray of the left foot. The left foot has a excellent 2+ dorsalis pedis pulse. She can flex and extend all toes on the left foot. The left foot has a normal temperature and color. The ankle joint has no effusion. 02/21/19 17:[address] a postop shoe on the patient. Patient's foot x-ray was negative. Patient's foot is red swollen and very tender. Exam does seem to be consistent with gout. Patient will not be able to tolerate crutches. At this time patient is unable to ambulate or bear weight on the left foot. Patient was discussed with Dr. Roberts and will be admitted for severe gout with inability to ambulate. (YESSENIA ALY) Discharge - Discharge Clinical Impression: Numbness in left leg, Weakness of left lower extremity Condition: Stable Disposition: HOME, SELF-CARE Instructions: Numbness or Paresthesia ([facility]) Additional Instructions: Please call your family physician as soon as possible to arrange an appointment for tomorrow. Referrals: Mikki KIM MD [ACTIVE STAFF] - Follow up as needed
[2019-02-21] MEDS ORDERED: MORPHINE SULFATE 10 MG/ML INJ IV ONE (15:19)
--- NOTE | 2019-02-21 17:04 | RADIOLOGY REPORT (SQ) ---
EXAM DESCRIPTION: FOOT LEFT COMPLETE COMPLETED DATE/TIME: 02/21/2019 4:54 pm REASON FOR STUDY: pain / swelling COMPARISON: None. NUMBER OF VIEWS: Three views. TECHNIQUE: AP, lateral and oblique radiographic images acquired of the left foot. LIMITATIONS: None. FINDINGS: MINERALIZATION: Normal. BONES: No acute fracture or dislocation. No worrisome bone lesions. JOINTS: No effusions. SOFT TISSUES: Soft tissue swelling. OTHER: No other significant finding. IMPRESSION: Soft tissue swelling. No osseous findings. TECHNICAL DOCUMENTATION: JOB ID: [id number] [employer]- All Rights Reserved Reading location - IP/workstation name: [email or web address]
[2019-02-21] MEDS ORDERED: PROMETHAZINE HCL 25 MG TABLET PO PRN (19:05)
[2019-02-21] MEDS ORDERED: ACETAMINOPHEN 325 MG TABLET PO PRN (19:05)
[2019-02-21] MEDS ORDERED: DICYCLOMINE HCL 10 MG CAPSULE PO PRN (19:18)
[2019-02-21] MEDS ORDERED: LEVALBUTEROL HCL NEB 0.63 MG/3 ML AMPUL NEB PRN (19:22)
[2019-02-21] MEDS ORDERED: DEXTROSE 50%-WATER 25 GM/50 ML DISP.SYRIN IV PRN ×2 (19:29)
[2019-02-21] MEDS ORDERED: GLUCAGON,HUMAN RECOMB 1 MG INJ IM PRN (19:29)
[2019-02-21] MEDS ORDERED: DEXTROSE 40% GEL 15 GM TUBE PO PRN ×2 (19:29)
--- NOTE | 2019-02-21 19:57 | PDOC H&P ---
History of Present Illness Admission Date/PCP: 02/21/19 18:15 SHEREEN KEENE MD Patient complains of: Pain in left foot History of Present Illness: JOSE ELIAS FUENTES is a 73 year old female with a very complex medical history. She presented to the emergency department yesterday with complaints of numbness in the left foot. She states that there was pain present. She does not have a history of gout. Multiple imaging studies were obtained. There was no evidence of neurologic impairment. X-ray of the foot did show some soft tissue swelling. A uric acid was not obtained but the presumptive diagnosis is gout. They did try to ambulate the patient with a postop shoe. The combination of her morbid obesity and foot pain medic completely unsafe for ambulation and subsequently discharged home. She was referred to the hospital service for admission. Past Medical History Cardiac Medical History: Reports: Atrial Fibrillation, Hyperlipidema, Hypertension Pulmonary Medical History: Reports: Chronic Obstructive Pulmonary Disease (COPD) EENT Medical History: Reports: Cataracts, Nose - Allergic rhinitis Neurological Medical History: Denies: Hemorrhagic CVA, Ischemic CVA, Migraine Endocrine Medical History: Reports: Diabetes Mellitus Type 2 Renal/ Medical History: Reports: Chronic Kidney Disease, Other - Stage III chronic kidney disease Malignancy Medical History: Reports: None GI Medical History: Reports: Gastroesophageal Reflux Disease, Other - Irritable bowel Musculoskeltal Medical History: Reports: Arthritis - Osteoarthritis multiple joints Denies: Gout Skin Medical History: Reports: Other - Onychomycosis Psychiatric Medical History: Denies: Alcohol Dependency, Dementia, Depression, Substance Abuse, Tobacco Dependency Traumatic Medical History: Reports: None Hematology: Reports: Anemia Infectious Medical History: Reports: None Past Surgical History Past Surgical History: Reports: Cardiac Catheterization, Cholecystectomy, Hyste rectomy, Orthopedic Surgery - Bilateral knee replacements, Other - Cardiac ablation, colonoscopy Social History Information Source: Patient Lives with: Family Smoking Status: Former Smoker Frequency of Alcohol Use: None Hx Recreational Drug Use: No Hx Prescription Drug Abuse: No - Advance Directive Resuscitation Status: Do Not Resuscitate Surrogate healthcare decision maker:: The patient does not have a document specifically. Her son is the designated decision maker. Family History Family History: DM, Malignancy - Pancreatic cancer, Other - Muscular dystrophy Parental Family History Reviewed: Yes Children Family History Reviewed: Yes Sibling(s) Family History Reviewed.: Yes Medication/Allergy Home Medications: Amlodipine Besylate [Norvasc 5 mg Tablet] 5 mg PO DAILY 02/21/19 Atorvastatin Calcium [Lipitor 40 mg Tablet] 40 mg PO QHS 02/21/19 Ciclopirox 1 applic TOP .QWEEKLY 02/21/19 Dicyclomine HCl [Bentyl 10 mg Capsule] 10 mg PO Q8 02/21/19 Dronedarone Hydrochloride [Multaq 400 mg Tablet] 400 mg PO BIDBS 02/21/19 Ergocalciferol (Vitamin D2) [Drisdol 50,000 unit (1.25MG) Capsule] 50,000 unit PO .QWEEKLY 02/21/19 Fentanyl [Duragesic 25 mcg/hr Transdermal Patch] 1 patch TOP Q3D 02/21/19 Gabapentin 600 mg PO Q8 MDD script from pain management 02/21/19 Gabapentin [Neurontin 300 mg Capsule] 300 mg PO Q8 MDD script from PCP 02/21/19 Hydrocodone/Acetaminophen [Billings 7.5-325 Tablet] 1 each PO Q6HP PRN 02/21/19 Insulin Glargine,Hum.rec.anlog [Lantus Insulin 100 Unit/1 ml 10 ml] 24 unit S UBCUT DAILY 02/21/19 Levocetirizine Dihydrochloride [Xyzal] 5 mg PO QHS 02/21/19 Losartan Potassium [Cozaar 50 mg Tablet] 100 mg PO DAILY 02/21/19 Magnesium Oxide [Mag-Ox 400 mg Tablet] 400 mg PO DAILY 02/21/19 Metformin HCl [Metformin HCl ER] 2,000 mg PO [id number] 02/21/19 Metoprolol Succinate [Toprol Xl 50 mg Tab.sr] 100 mg PO Q12 02/21/19 Rivaroxaban [Xarelto] 20 mg PO DAILY 02/21/19 Sitagliptin Phosphate [Januvia 50 mg Tablet] 100 mg PO DAILY 02/21/19 Tizanidine HCl [Zanaflex] 2 mg PO Q8HP PRN 02/21/19 Allergies/Adverse Reactions: penicillinase Allergy (Verified 11/12/17 17:57) Penicillins Allergy (Verified 11/12/17 17:57) Review of Systems Constitutional: PRESENT: anorexia - Over the last 2 days. ABSENT: fever(s), headache(s), weight gain, weight loss Eyes: PRESENT: other - Wears glasses Ears: ABSENT: hearing changes Nose, Mouth, and Throat: ABSENT: headache(s), mouth pain, sore throat Cardiovascular: ABSENT: chest pain, edema, palpitations Respiratory: ABSENT: cough, hemoptysis, sputum Gastrointestinal: ABSENT: abdominal pain, constipation, diarrhea, heartburn, nausea, vomiting Genitourinary: ABSENT: difficulty urinating, dysuria, hematuria Musculoskeletal: PRESENT: other - Right rib pain, left foot pain Integumentary: PRESENT: other - Onychomycosis Neurological: PRESENT: abnormal gait - Unable to safely ambulate due to left foot pain. ABSENT: abnormal speech, confusion, memory loss Psychiatric: ABSENT: anxiety, depression, hallucinations Endocrine: ABSENT: cold intolerance, heat intolerance, polydipsia, polyuria Hematologic/Lymphatic: ABSENT: easy bleeding, easy bruising, lymphadenopathy Allergic/Immunologic: PRESENT: seasonal rhinorrhea Physical Exam Vital Signs: Temp Pulse Resp BP Pulse Ox 98.7 F 88 20 117/99 H 97 02/21/19 19:24 02/21/19 19:24 02/21/19 19:24 02/21/19 19:24 02/21/19 19:24 Intake & Output 02/20/19 02/21/19 02/22/19 06:59 06:59 06:59 Weight 127.006 kg General appearance: PRESENT: cooperative, morbidly obese, well-developed Head exam: PRESENT: atraumatic, normocephalic Eye exam: PRESENT: conjunctiva pink, EOMI, PERRLA. ABSENT: scleral icterus Ear exam: PRESENT: normal external ear exam Mouth exam: PRESENT: moist, tongue midline Teeth exam: PRESENT: edentulous, other - Upper and lower dentures Respiratory exam: PRESENT: clear to auscultation nitza, decreased breath sounds - Due to body habitus, symmetrical, unlabored. ABSENT: accessory muscle use, rales, rhonchi, tachypnea, wheezes Cardiovascular exam: PRESENT: RRR, +S1, +S2 GI/Abdominal exam: PRESENT: normal bowel sounds, soft. ABSENT: distended - Pendulous abdomen, tenderness Rectal exam: PRESENT: deferred Gentrourinary exam: ABSENT: indwelling catheter Extremities exam: PRESENT: pedal edema Musculoskeletal exam: PRESENT: other - Swelling noted left foot especially first tarsal metatarsal joint. Tenderness under the metatarsal heads as well. Decreased movement of the hallux secondary to pain Neurological exam: PRESENT: alert, awake, oriented to person, oriented to place, oriented to time, oriented to situation, CN II-XII grossly intact. ABSENT: motor sensory deficit Psychiatric exam: PRESENT: flat affect. ABSENT: agitated, anxious Focused psych exam: ABSENT: delusional, restlessness Skin exam: PRESENT: warm - Skin over the left foot is warm to the touch. Warmer than the skin on her leg.. ABSENT: rash Results Laboratory Results: 02/20/19 18:54 02/20/19 18:54 02/20/19 02/20/19 18:54 18:54 Sodium 139.9 Potassium 4.4 Chloride 101 Carbon Dioxide 29 Anion Gap 10 BUN 20 Creatinine 1.33 H Est GFR ( Amer) 47 L Est GFR (Non-Af Amer) 39 L Glucose 88 Calcium 8.9 Magnesium 2.1 Total Bilirubin 0.3 AST 14 Alkaline Phosphatase 88 C-Reactive Protein 38.9 H Total Protein 7.3 Albumin 3.9 Impressions: Head CT 02/20/19 00:00 IMPRESSION: No acute intracranial findings are seen. Please note that MRI is more sensitive for the evaluation of early infarction, and may be performed if there is high clinical concern. Lumbar Spine X-Ray 02/20/19 00:00 IMPRESSION: No acute findings are seen. However, please note that the generalized osteopenia limits evaluation for subtle or nondisplaced fractures. Consider cross-sectional imaging if there is high clinical concern or point tenderness. Venous Doppler Study 02/20/19 00:00 IMPRESSION: No sonographic evidence of acute DVT within the lower extremities. Head MRI 02/20/19 20:45 IMPRESSION: No evidence to suggest acute infarct Mild age-related atrophy with mild periventricular white matter disease and microvascular ischemic changes Lumbar Spine MRI 02/21/19 03:15 IMPRESSION: 1. Postcontrast images without significant abnormal enhancement within the L3-4 disc space or endplates to suggest discitis. 2. Multilevel degenerative changes and disc bulges, better delineated on recent prior dedicated lumbar MRI. Foot X-Ray 02/21/19 16:34 IMPRESSION: Soft tissue swelling. No osseous findings. Assessment and Plan - Diagnosis (1) Acute gout due to renal impairment involving left foot Is this a current diagnosis for this admission?: Yes Plan: Over the last 18 hours there have been multiple imaging studies. None of which showed any pathology that could be responsible for the patient's "numbness "in her left leg. C-reactive protein and sedimentation rate were very high. A left foot x-ray revealed soft tissue swelling. Uric acid was not obtained but the presumptive diagnosis is acute gouty arthritis. She does have risk factors including her chronic kidney disease and recent use of furosemide. She is currently off of her furosemide. I am going to initiate colchicine 0.6 mg twice daily. Consider systemic prednisone if the colchicine is ineffective. Narcotic analgesia will be available as well. (2) Left foot pain Is this a current diagnosis for this admission?: Yes Plan: X-rays did not reveal any fractures. She was unable to bear weight. Analgesia is available as needed. She also wears a Duragesic patch. Treatment with colchicine should significantly help the pain. I have asked physical therapy to assess the patient to see if we can stabilize her gait to allow for safe discharge to home. (3) Chronic kidney disease, stage III (moderate) Is this a current diagnosis for this admission?: Yes Plan: Renal failure is stable. In fact her creatinine clearance is above 60 with a GFR below 60. Maintain cardiac/diabetic diet. No nephrology consult required at this point. (4) Paroxysmal atrial fibrillation Is this a current diagnosis for this admission?: Yes Plan: The patient is anticoagulated with Eliquis. We will also continue the metoprolol succinate 100 mg twice daily. (5) Essential hypertension Is this a current diagnosis for this admission?: Yes Plan: Currently on multiple medications including amlodipine, metoprolol and losartan. Monitor blood pressure and adjust medications if needed. (6) Diabetes mellitus type 2 in obese Is this a current diagnosis for this admission?: Yes Plan: We will continue the patient's Januvia, metformin and Lantus. Accu-Cheks with meals and at bedtime. Sliding scale per protocol. (7) Hyperlipidemia Qualifiers: Hyperlipidemia type: unspecified Qualified Code(s): E78.5 - Hyperlipidemia, unspecified Is this a current diagnosis for this admission?: Yes Plan: Continue atorvastatin 40 mg daily. (8) Diabetic neuropathy Qualifiers: Diabetes mellitus type: type 2 Diabetes mellitus complication detail: diabetic polyneuropathy Qualified Code(s): E11.42 - Type 2 diabetes mellitus with diabetic polyneuropathy Is this a current diagnosis for this admission?: Yes Plan: Continue Neurontin 600 mg 3 times a day (9) Morbid obesity with BMI of 40.0-44.9, adult Is this a current diagnosis for this admission?: Yes Plan: Consider more aggressive diet regimen for weight loss. (10) Chronic pain syndrome Is this a current diagnosis for this admission?: Yes Plan: Continue Duragesic patch and as needed medications. - Time Time Spent with patient: 35 or more minutes Medications reviewed and adjusted accordingly: Yes Anticipated discharge: Home Within: within 48 hours
--- NOTE | 2019-02-21 20:00 | ADVANCED CARE ---
- Diagnosis (1) Acute gout due to renal impairment involving left foot Diagnosis Current: Yes (2) Left foot pain Diagnosis Current: Yes (3) Chronic kidney disease, stage III (moderate) Diagnosis Current: Yes (4) Paroxysmal atrial fibrillation Diagnosis Current: Yes (5) Essential hypertension Diagnosis Current: Yes (6) Diabetes mellitus type 2 in obese Diagnosis Current: Yes (7) Hyperlipidemia Diagnosis Current: Yes (8) Diabetic neuropathy Diagnosis Current: Yes (9) Morbid obesity with BMI of 40.0-44.9, adult Diagnosis Current: Yes (10) Chronic pain syndrome Diagnosis Current: Yes Attendance: The patient and her son were present for this discussion. Resuscitation Status: Do Not Resuscitate Discussion: The patient was very explicit about not wanting extraordinary measures. The patient's son seems surprised. I spent time reviewing the fact that DO NOT RESUSCITATE still provided extremely aggressive treatment up until there is cardiac or pulmonary arrest. I also pointed out that with her significant medical comorbidities she would not likely survive a significant arrest or she might survive with a very compromised lifestyle. She stated that this is not what she would want and she is more comfortable not instituting heroic measures when the time comes. The patient's son had a better understanding after this discussion. Care Planning Goals: The patient is DO NOT RESUSCITATE. She did explain that she wanted no heroic measures. Document(s) Completed: None completed at this time. Consider reviewing the healthcare proxy document in the patient's admission packet. The admission packet was not in the room yet and therefore I could not review the form with the patient and her family. Time Spent: 20 minutes
[2019-02-21] MEDS: METOPROLOL SUCCINATE 50 MG TAB.SR.24H PO SCH (21:29)
[2019-02-21] MEDS: COLCHICINE 0.6 MG TABLET PO SCH (21:29)
[2019-02-21] MEDS: ATORVASTATIN CALCIUM 40 MG TABLET PO SCH (21:30)
[2019-02-21] MEDS: OXYCODONE-ACETAMINOPHEN 5-325 MG TABLET PO PRN (21:30)
[2019-02-21] MEDS: GABAPENTIN 300 MG CAPSULE PO SCH (21:30)
[2019-02-21] MEDS: FLUTICASONE NASAL SPRAY 50 MCG/SPRY 120 SPRAY/16 GM NASL SCH (21:31)
[2019-02-22] MEDS: INSULIN LISPRO 100 UNIT/ML 3 ML VIAL SUBCUT SCH ×5 (02:19→23:11)
[2019-02-22] MEDS: PANTOPRAZOLE SODIUM 20 MG TABLET.DR PO SCH (06:29)
[2019-02-22] MEDS: GABAPENTIN 300 MG CAPSULE PO SCH ×3 (06:29→21:41)
[2019-02-22 07:14] LABS: ALBUMIN 3.3 g/dL (3.5-5.0); ANION GAP 7 (5-19); BLOOD UREA NITROGEN 15 mg/dL (7-20); CALCIUM 8.4 mg/dL (8.4-10.2); CARBON DIOXIDE 29 mmol/L (22-30); CHLORIDE 102 mmol/L (98-107); GLUCOSE 116 mg/dL (75-110); PHOSPHORUS 2.6 mg/dL (2.5-4.5); POTASSIUM 5.2 mmol/L (3.6-5.0); URIC ACID 8.8 mg/dL (2.5-7.5)
[2019-02-22] MEDS ORDERED: ERGOCALCIFEROL (VITAMIN D2) 50000 UNIT (1.25 MG) CAPSULE PO SCH (08:00)
[2019-02-22] MEDS ORDERED: SODIUM POLYSTYRENE SULFONATE 15 GM/60 ML PO ONE (08:30)
--- NOTE | 2019-02-22 09:44 | PDOC PROGRESS REPORT ---
Subjective Progress Note for:: 02/22/19 Subjective:: 73 year old female with a very complex medical history. She presented to the emergency department yesterday with complaints of numbness in the left foot. She states that there was pain present. She does not have a history of gout. Multiple imaging studies were obtained. There was no evidence of neurologic impairment. X-ray of the foot did show some soft tissue swelling. A uric acid was not obtained but the presumptive diagnosis is gout. They did try to am bulate the patient with a postop shoe. The combination of her morbid obesity and foot pain medic completely unsafe for ambulation and subsequently discharged home. She was referred to the hospital service for admission. 02/[id number]-peju-old female admitted for complaints of numbness in the left foot she does not have any history of gout. She has MRI of the brain was done MRI of the lumbar spine was done which were negative x-ray of the foot was done shows soft tissue swelling uric acid level came back as 8.8. She was admitted for severe pain and unable to ambulate. This morning she is still complaining of pain physical therapy came in patient unable to stand as per the physical therap y. We may have to keep her at least another day for further management. To start on prednisone 20 mg p.o. twice daily and allopurinol. Patient is already on colchicine. Is is receiving fentanyl patch . Reason For Visit: ACUTE GOUT LEFT FOOT,SEVERE PAIN LEFT FOOT,INABILI Physical Exam Vital Signs: Temp Pulse Resp BP Pulse Ox 98.9 F 78 18 148/52 H 93 02/22/19 08:00 02/22/19 08:00 02/22/19 08:00 02/22/19 08:00 02/22/19 08:00 Intake & Output 02/21/19 02/22/19 02/23/19 06:59 06:59 06:59 Intake Total 200 Output Total 425 Balance -225 Weight 127.006 kg 129.3 kg General appearance: PRESENT: mild distress, morbidly obese Head exam: PRESENT: atraumatic Eye exam: PRESENT: PERRLA Mouth exam: PRESENT: moist, tongue midline Teeth exam: PRESENT: poor dentation Neck exam: ABSENT: carotid bruit, JVD, lymphadenopathy, thyromegaly Respiratory exam: PRESENT: clear to auscultation nitza. ABSENT: rales, rhonchi, wheezes Cardiovascular exam: PRESENT: RRR. ABSENT: diastolic murmur, rubs, systolic murmur GI/Abdominal exam: PRESENT: normal bowel sounds, soft. ABSENT: distended, guarding, mass, organolmegaly, rebound, tenderness Rectal exam: PRESENT: deferred Extremities exam: PRESENT: full ROM. ABSENT: calf tenderness, clubbing, pedal edema Neurological exam: PRESENT: alert, awake, oriented to person, oriented to place, oriented to time, oriented to situation, CN II-XII grossly intact. ABSENT: motor sensory deficit Psychiatric exam: PRESENT: appropriate affect, normal mood. ABSENT: homicidal ideation, suicidal ideation Results Laboratory Results: 02/20/19 18:54 02/22/19 05:55 02/22/19 05:55 Sodium 137.6 Potassium 5.2 H Chloride 102 Carbon Dioxide 29 Anion Gap 7 BUN 15 Creatinine 1.06 Est GFR ( Amer) > 60 Est GFR (Non-Af Amer) 51 L Glucose 116 H Uric Acid 8.8 H Calcium 8.4 Phosphorus 2.6 Magnesium 1.9 Albumin 3.3 L Impressions: Head CT 02/20/19 00:00 IMPRESSION: No acute intracranial findings are seen. Please note that MRI is more sensitive for the evaluation of early infarction, and may be performed if there is high clinical concern. Lumbar Spine X-Ray 02/20/19 00:00 IMPRESSION: No acute findings are seen. However, please note that the generalized osteopenia limits evaluation for subtle or nondisplaced fractures. Consider cross-sectional imaging if there is high clinical concern or point tenderness. Venous Doppler Study 02/20/19 00:00 IMPRESSION: No sonographic evidence of acute DVT within the lower extremities. Head MRI 02/20/19 20:45 IMPRESSION: No evidence to suggest acute infarct Mild age-related atrophy with mild periventricular white matter disease and microvascular ischemic changes Lumbar Spine MRI 02/21/19 03:15 IMPRESSION: 1. Postcontrast images without significant abnormal enhancement within the L3-4 disc space or endplates to suggest discitis. 2. Multilevel degenerative changes and disc bulges, better delineated on recent prior dedicated lumbar MRI. Foot X-Ray 02/21/19 16:34 IMPRESSION: Soft tissue swelling. No osseous findings. Assessment and Plan - Diagnosis (1) Acute gout due to renal impairment involving left foot Is this a current diagnosis for this admission?: Yes Plan: Over the last 18 hours there have been multiple imaging studies. None of which showed any pathology that could be responsible for the patient's "numbness "in her left leg. C-reactive protein and sedimentation rate were very high. A left foot x-ray revealed soft tissue swelling. Uric acid was not obtained but the presumptive diagnosis is acute gouty arthritis. She does have risk factors including her chronic kidney disease and recent use of furosemide. She is currently off of her furosemide. I am going to initiate colchicine 0.6 mg twice daily. Consider systemic prednisone if the colchicine is ineffective. Narcotic analgesia will be available as well. 02/22/2019-patient came in with complaints of severe left foot pain most likely secondary to gouty arthritis. She never a history of gout. Uric acid level is 8.8. Review of the medication was done and she is not on any medications causing gout flareup. Uric acid level is 8.8 she is already on colchicine is to start on allopurinol 100 mg p.o. twice daily and prednisone 20 mg p.o. twice daily. Physical therapy consult was requested. (2) Chronic kidney disease, stage III (moderate) Is this a current diagnosis for this admission?: Yes Plan: Renal failure is stable. In fact her creatinine clearance is above 60 with a GFR below 60. Maintain cardiac/diabetic diet. No nephrology consult required at this point. 02/22/2019-patient serum creatinine is 1.06 GFR is more than 60. Urinary output is good. Nonoliguric. (3) Chronic pain syndrome Is this a current diagnosis for this admission?: Yes Plan: Continue Duragesic patch and as needed medications. 02/22/2019-patient has history of chronic pain syndrome on fentanyl patch she is also receiving pain medications on PRN basis. (4) Diabetes mellitus type 2 in obese Is this a current diagnosis for this admission?: Yes Plan: We will continue the patient's Januvia, metformin and Lantus. Accu-Cheks with meals and at bedtime. Sliding scale per protocol. 02/22/2019-patient has history of diabetes mellitus type 2 to hold metformin dur ing the hospital stay in case if he need a CT scan with IV contrast to continue insulin sliding scale before meals and bed time. Latest blood sugar is 119. Dietary consult was requested. (5) Essential hypertension Is this a current diagnosis for this admission?: Yes Plan: Currently on multiple medications including amlodipine, metoprolol and losartan. Monitor blood pressure and adjust medications if needed. 02/22/2019-patient's blood pressure today is 119/55 presently on amlodipine, metoprolol and losartan. Plan is to continue the present management. (6) Diabetic neuropathy Qualifiers: Diabetes mellitus type: type 2 Diabetes mellitus complication detail: diabetic polyneuropathy Qualified Code(s): E11.42 - Type 2 diabetes mellitus with diabetic polyneuropathy Is this a current diagnosis for this admission?: Yes Plan: Continue Neurontin 600 mg 3 times a day 02/22/2019-patient has history of diabetes mellitus with diabetic peripheral neuropathy and gabapentin 600 mg 3 times daily plan is to continue the present management. (7) Morbid obesity with BMI of 40.0-44.9, adult Is this a current diagnosis for this admission?: Yes Plan: Consider more aggressive diet regimen for weight loss. 02/22/2019-patient BMI is more than 50 diet exercise weight loss lifestyle modifications are discussed with the patient dietary consult will be requested. (8) Paroxysmal atrial fibrillation Is this a current diagnosis for this admission?: Yes Plan: The patient is anticoagulated with Eliquis. We will also continue the metoprolol succinate 100 mg twice daily. 02/22/2019-patient has history of paroxysmal atrial fibrillation heart rate is 74 presently on metoprolol 100 mg p.o. twice a day and on Eliquis. Plan is to continue the present management.
[2019-02-22] MEDS ORDERED: INSULIN GLARGINE,HUM.REC.ANLOG 1,000 UNIT/10 ML VIAL SUBCUT SCH (10:00)
[2019-02-22] MEDS ORDERED: (PENDING PHARMACY ID) (Tizanidine Hcl [Zanaflex] 2 MG) PO SCH (10:00)
[2019-02-22] MEDS: PREDNISONE 20 MG TABLET PO SCH ×2 (10:47→17:45)
[2019-02-22] MEDS: AMLODIPINE BESYLATE 5 MG TABLET PO SCH (10:47)
[2019-02-22] MEDS: FENTANYL 25 MCG/HR PATCH.TD72 TD SCH (10:48)
[2019-02-22] MEDS: SITAGLIPTIN PHOSPHATE 50 MG TABLET PO SCH (10:48)
[2019-02-22] MEDS: ALLOPURINOL 100 MG TABLET PO SCH ×2 (10:48→17:45)
[2019-02-22] MEDS: LOSARTAN POTASSIUM 50 MG TABLET PO SCH (10:48)
[2019-02-22] MEDS: METOPROLOL SUCCINATE 50 MG TAB.SR.24H PO SCH ×2 (10:48→21:41)
[2019-02-22] MEDS: METFORMIN HCL 500 MG TABLET PO SCH ×2 (10:48→17:45)
[2019-02-22] MEDS: MAGNESIUM OXIDE 400 MG TABLET PO SCH (10:48)
[2019-02-22] MEDS: FLUTICASONE NASAL SPRAY 50 MCG/SPRY 120 SPRAY/16 GM NASL SCH ×2 (10:50→21:42)
[2019-02-22] MEDS: TIZANIDINE HCL 4 MG TABLET PO SCH ×2 (10:57→17:46)
[2019-02-22] MEDS: FLUTICASONE/VILANTEROL 200-25 MCG/DOSE IH SCH (11:02)
[2019-02-22] MEDS: INSULIN GLARGINE,HUM.REC.ANLOG 1,000 UNIT/10 ML VIAL SUBCUT SCH (11:03)
[2019-02-22] MEDS: COLCHICINE 0.6 MG TABLET PO SCH ×2 (11:13→21:41)
[2019-02-22] MEDS ORDERED: RIVAROXABAN 10 MG TABLET PO SCH (17:00)
[2019-02-22] MEDS: RIVAROXABAN 10 MG TABLET PO SCH (17:45)
[2019-02-22] MEDS: OXYCODONE-ACETAMINOPHEN 5-325 MG TABLET PO PRN (19:13)
[2019-02-22] MEDS: ATORVASTATIN CALCIUM 40 MG TABLET PO SCH (21:41)
[2019-02-22] MEDS: CETIRIZINE 5 MG TABLET PO SCH (21:41)
[2019-02-22] MEDS: GUAIFENESIN SYRP 200 MG/10 ML UDC PO PRN (23:11)
[2019-02-23] MEDS: OXYCODONE-ACETAMINOPHEN 5-325 MG TABLET PO PRN ×3 (02:15→22:39)
[2019-02-23] MEDS: INSULIN LISPRO 100 UNIT/ML 3 ML VIAL SUBCUT SCH ×3 (06:03→17:38)
[2019-02-23] MEDS: PANTOPRAZOLE SODIUM 20 MG TABLET.DR PO SCH (06:03)
[2019-02-23] MEDS: GABAPENTIN 300 MG CAPSULE PO SCH ×3 (06:03→22:38)
[2019-02-23 06:36] LABS: ABSOLUTE LYMPHOCYTES (AUTO) 0.9 10^3/uL (0.5-4.7); ABSOLUTE MONOCYTES (AUTO) 0.5 10^3/uL (0.1-1.4); ABSOLUTE NEUT (AUTO) 13.7 10^3/uL (1.7-8.2); BASOPHILS % (AUTO) 0.2 % (0-2); HEMATOCRIT 31.5 % (36.0-47.0); LYMPHOCYTES % (AUTO) 5.6 % (13-45); MEAN CORPUSCULAR HEMOGLOBIN 27.5 pg (27.0-33.4); MEAN CORPUSCULAR HGB CONC 31.8 g/dL (32.0-36.0); MEAN CORPUSCULAR VOLUME 87 fl (80-97); MONOCYTES % (AUTO) 3.1 % (3-13); PLATELET COUNT 276 10^3/uL (150-450); RED BLOOD COUNT 3.63 10^6/uL (3.72-5.28); RED CELL DISTRIBUTION WIDTH 17.8 % (11.5-14.0); SEGMENTED NEUTROPHILS % (AUTO) 91.1 % (42-78); TOTAL CELLS COUNTED % (AUTO) 100 %; WHITE BLOOD COUNT 15.1 10^3/uL (4.0-10.5)
[2019-02-23 06:52] LABS: ALBUMIN 3.4 g/dL (3.5-5.0); ALKALINE PHOSPHATASE 80 U/L (38-126); ANION GAP 8 (5-19); ASPARTATE AMINO TRANSFERASE 14 U/L (14-36); BILIRUBIN,DIRECT 0.3 mg/dL (0.0-0.4); BILIRUBIN,TOTAL 0.3 mg/dL (0.2-1.3); BLOOD UREA NITROGEN 22 mg/dL (7-20); CALCIUM 8.5 mg/dL (8.4-10.2); CARBON DIOXIDE 27 mmol/L (22-30); CHLORIDE 103 mmol/L (98-107); GLUCOSE 154 mg/dL (75-110); POTASSIUM 4.8 mmol/L (3.6-5.0); TOTAL PROTEIN 6.7 g/dL (6.3-8.2)
[2019-02-23] MEDS: METFORMIN HCL 500 MG TABLET PO SCH ×2 (09:20→17:36)
--- NOTE | 2019-02-23 10:15 | PDOC PROGRESS REPORT ---
Subjective Progress Note for:: 02/23/19 Subjective:: 73 year old female with a very complex medical history. She presented to the emergency department yesterday with complaints of numbness in the left foot. She states that there was pain present. She does not have a history of gout. Multiple imaging studies were obtained. There was no evidence of neurologic impairment. X-ray of the foot did show some soft tissue swelling. A uric acid was not obtained but the presumptive diagnosis is gout. They did try to am bulate the patient with a postop shoe. The combination of her morbid obesity and foot pain medic completely unsafe for ambulation and subsequently discharged home. She was referred to the hospital service for admission. 02/[id number]-old female admitted for complaints of numbness in the left foot she does not have any history of gout. She has MRI of the brain was done MRI of the lumbar spine was done which were negative x-ray of the foot was done shows soft tissue swelling uric acid level came back as 8.8. She was admitted for severe pain and unable to ambulate. This morning she is still complaining of pain physical therapy came in patient unable to stand as per the physical therap y. We may have to keep her at least another day for further management. To start on prednisone 20 mg p.o. twice daily and allopurinol. Patient is already on colchicine. Is is receiving fentanyl patch . 02/[id number]-old female admitted with gout affecting the left foot yesterday she said she has severe intensity of pain unable to walk all the extensive work- up came back negative uric acid is 8.8 she is receiving colchicine, allopurinol, prednisone and pain medications she is complaining of right toe pain today. Right great toe pain is 3 x 10 as per the patient. Left foot pain is improving. Patient still states she is unable to walk even up to the restroom. Patient's lives alone she is concerned about difficulty in walking prior to going home and she wants to stay at least another day. Reason For Visit: ACUTE GOUT LEFT FOOT,SEVERE PAIN LEFT FOOT,INABILI Physical Exam Vital Signs: Temp Pulse Resp BP Pulse Ox 98.4 F 66 20 133/60 H 93 02/23/19 07:26 02/23/19 07:26 02/23/19 07:26 02/23/19 07:26 02/23/19 07:26 Intake & Output 02/22/19 02/23/19 02/24/19 06:59 06:59 06:59 Intake Total 200 1080 Output Total 425 500 Balance -225 580 Weight 129.3 kg 132.2 kg General appearance: PRESENT: no acute distress, morbidly obese Head exam: PRESENT: atraumatic Eye exam: PRESENT: PERRLA Mouth exam: PRESENT: neck supple Teeth exam: PRESENT: poor dentation Neck exam: ABSENT: carotid bruit, JVD, lymphadenopathy, thyromegaly Respiratory exam: PRESENT: clear to auscultation nitza. ABSENT: rales, rhonchi, wheezes Cardiovascular exam: PRESENT: RRR. ABSENT: diastolic murmur, rubs, systolic murmur GI/Abdominal exam: PRESENT: normal bowel sounds, soft. ABSENT: distended, guarding, mass, organolmegaly, rebound, tenderness Rectal exam: PRESENT: deferred Extremities exam: PRESENT: full ROM. ABSENT: calf tenderness, clubbing, pedal edema Neurological exam: PRESENT: alert, awake, oriented to person, oriented to place, oriented to time, oriented to situation, CN II-XII grossly intact. ABSENT: motor sensory deficit Psychiatric exam: PRESENT: appropriate affect, normal mood. ABSENT: homicidal ideation, suicidal ideation Results Laboratory Results: 02/23/19 05:17 02/23/19 05:17 02/23/19 02/23/19 05:17 05:17 WBC 15.1 H RBC 3.63 L Hgb 10.0 L Hct 31.5 L MCV 87 MCH 27.5 MCHC 31.8 L RDW 17.8 H Plt Count 276 Seg Neutrophils % 91.1 H Lymphocytes % 5.6 L Monocytes % 3.1 Eosinophils % 0.0 Basophils % 0.2 Absolute Neutrophils 13.7 H Absolute Lymphocytes 0.9 Absolute Monocytes 0.5 Absolute Eosinophils 0.0 Absolute Basophils 0.0 Sodium 137.9 Potassium 4.8 Chloride 103 Carbon Dioxide 27 Anion Gap 8 BUN 22 H Creatinine 1.14 Est GFR ( Amer) 57 L Est GFR (Non-Af Amer) 47 L Glucose 154 H Calcium 8.5 Magnesium 1.9 Total Bilirubin 0.3 AST 14 Alkaline Phosphatase 80 Total Protein 6.7 Albumin 3.4 L Impressions: Head CT 02/20/19 00:00 IMPRESSION: No acute intracranial findings are seen. Please note that MRI is more sensitive for the evaluation of early infarction, and may be performed if there is high clinical concern. Lumbar Spine X-Ray 02/20/19 00:00 IMPRESSION: No acute findings are seen. However, please note that the generalized osteopenia limits evaluation for subtle or nondisplaced fractures. Consider cross-sectional imaging if there is high clinical concern or point tenderness. Venous Doppler Study 02/20/19 00:00 IMPRESSION: No sonographic evidence of acute DVT within the lower extremities. Head MRI 02/20/19 20:45 IMPRESSION: No evidence to suggest acute infarct Mild age-related atrophy with mild periventricular white matter disease and microvascular ischemic changes Lumbar Spine MRI 02/21/19 03:15 IMPRESSION: 1. Postcontrast images without significant abnormal enhancement within the L3-4 disc space or endplates to suggest discitis. 2. Multilevel degenerative changes and disc bulges, better delineated on recent prior dedicated lumbar MRI. Foot X-Ray 02/21/19 16:34 IMPRESSION: Soft tissue swelling. No osseous findings. Assessment and Plan - Diagnosis (1) Acute gout due to renal impairment involving left foot Is this a current diagnosis for this admission?: Yes Plan: Over the last 18 hours there have been multiple imaging studies. None of which showed any pathology that could be responsible for the patient's "numbness "in her left leg. C-reactive protein and sedimentation rate were very high. A left foot x-ray revealed soft tissue swelling. Uric acid was not obtained but the presumptive diagnosis is acute gouty arthritis. She does have risk factors including her chronic kidney disease and recent use of furosemide. She is currently off of her furosemide. I am going to initiate colchicine 0.6 mg twice daily. Consider systemic prednisone if the colchicine is ineffective. Narcotic analgesia will be available as well. 02/22/2019-patient came in with complaints of severe left foot pain most likely secondary to gouty arthritis. She never a history of gout. Uric acid level is 8.8. Review of the medication was done and she is not on any medications causing gout flareup. Uric acid level is 8.8 she is already on colchicine is to start on allopurinol 100 mg p.o. twice daily and prednisone 20 mg p.o. twice daily. Physical therapy consult was requested. 02/[id number]-old female admitted with gouty arthritis uric acid is 8.8 at the time of admission plan to repeat the uric acid level today. Extensive work- up is negative for stroke. Patient is on colchicine, allopurinol, prednisone. Creatinine is stable at 1.14. No acute events in the last 24 hours. Patient is expressing desire to stay at least another day today she is complaining of right great toe pain pain scale is 3 x 10 as per the patient. physical Therapy is working with the patient. (2) Chronic kidney disease, stage III (moderate) Is this a current diagnosis for this admission?: Yes Plan: Renal failure is stable. In fact her creatinine clearance is above 60 with a GFR below 60. Maintain cardiac/diabetic diet. No nephrology consult required at this point. 02/22/2019-patient serum creatinine is 1.06 GFR is more than 60. Urinary output is good. Nonoliguric. 02/23/2019-patient creatinine is 1.14 with a GFR is more than 60. Nonoliguric. Plan is to continue to closely monitor the kidney function. (3) Chronic pain syndrome Is this a current diagnosis for this admission?: Yes Plan: Continue Duragesic patch and as needed medications. 02/22/2019-patient has history of chronic pain syndrome on fentanyl patch she is also receiving pain medications on PRN basis. (4) Diabetes mellitus type 2 in obese Is this a current diagnosis for this admission?: Yes (5) Essential hypertension Is this a current diagnosis for this admission?: Yes Plan: Currently on multiple medications including amlodipine, metoprolol and losartan. Monitor blood pressure and adjust medications if needed. 02/22/2019-patient's blood pressure today is 119/55 presently on amlodipine, metoprolol and losartan. Plan is to continue the present management. 02/23/2019-patient blood pressure today is 154/71. Stable. Plan is to continue amlodipine, metoprolol and losartan. (6) Diabetic neuropathy Qualifiers: Diabetes mellitus type: type 2 Diabetes mellitus complication detail: diabetic polyneuropathy Qualified Code(s): E11.42 - Type 2 diabetes mellitus with diabetic polyneuropathy Is this a current diagnosis for this admission?: Yes (7) Morbid obesity with BMI of 40.0-44.9, adult Is this a current diagnosis for this admission?: Yes (8) Paroxysmal atrial fibrillation Is this a current diagnosis for this admission?: Yes - Time Time Spent with patient: 15-24 minutes Medications reviewed and adjusted accordingly: Yes Anticipated discharge: Home, Home with Homehealth
[2019-02-23] MEDS: FLUTICASONE NASAL SPRAY 50 MCG/SPRY 120 SPRAY/16 GM NASL SCH ×2 (12:19→22:40)
[2019-02-23] MEDS: LOSARTAN POTASSIUM 50 MG TABLET PO SCH (12:20)
[2019-02-23] MEDS: SITAGLIPTIN PHOSPHATE 50 MG TABLET PO SCH (12:21)
[2019-02-23] MEDS: METOPROLOL SUCCINATE 50 MG TAB.SR.24H PO SCH ×2 (12:21→22:39)
[2019-02-23] MEDS: PREDNISONE 20 MG TABLET PO SCH ×2 (12:21→17:36)
[2019-02-23] MEDS: AMLODIPINE BESYLATE 5 MG TABLET PO SCH (12:21)
[2019-02-23] MEDS: TIZANIDINE HCL 4 MG TABLET PO SCH ×2 (12:22→17:40)
[2019-02-23] MEDS: MAGNESIUM OXIDE 400 MG TABLET PO SCH (12:22)
[2019-02-23] MEDS: COLCHICINE 0.6 MG TABLET PO SCH ×2 (12:22→22:39)
[2019-02-23] MEDS: ALLOPURINOL 100 MG TABLET PO SCH ×2 (12:22→17:36)
[2019-02-23] MEDS: FLUTICASONE/VILANTEROL 200-25 MCG/DOSE IH SCH (12:23)
[2019-02-23] MEDS: INSULIN GLARGINE,HUM.REC.ANLOG 1,000 UNIT/10 ML VIAL SUBCUT SCH (12:42)
[2019-02-23] MEDS: RIVAROXABAN 10 MG TABLET PO SCH (17:37)
[2019-02-23] MEDS: ATORVASTATIN CALCIUM 40 MG TABLET PO SCH (22:39)
[2019-02-23] MEDS: CETIRIZINE 5 MG TABLET PO SCH (22:40)
[2019-02-23] MEDS ORDERED: INSULIN LISPRO 100 UNIT/ML 3 ML VIAL SUBCUT ONE (23:00)
[2019-02-23] MEDS: GUAIFENESIN SYRP 200 MG/10 ML UDC PO PRN (23:40)
[2019-02-24 04:27] LABS: HEMATOCRIT 31.1 % (36.0-47.0); HEMOGLOBIN 9.8 g/dL (12.0-15.5); MEAN CORPUSCULAR HEMOGLOBIN 27.3 pg (27.0-33.4); MEAN CORPUSCULAR HGB CONC 31.6 g/dL (32.0-36.0); MEAN CORPUSCULAR VOLUME 87 fl (80-97); PLATELET COUNT 330 10^3/uL (150-450); RED BLOOD COUNT 3.59 10^6/uL (3.72-5.28); RED CELL DISTRIBUTION WIDTH 17.8 % (11.5-14.0); WHITE BLOOD COUNT 19.5 10^3/uL (4.0-10.5)
[2019-02-24 04:45] LABS: ABSOLUTE LYMPHOCYTES# (MANUAL) 0.8 10^3/uL (0.5-4.7); ABSOLUTE MONOCYTES # (MANUAL) 0.8 10^3/uL (0.1-1.4); ANISOCYTOSIS 1+; BASOPHILS % (MANUAL) 0 % (0-2); EOSINOPHILS % (MANUAL) 0 % (0-6); HYPOCHROMASIA 1+; LYMPHOCYTES % (MANUAL) 4 % (13-45); MONOCYTES % (MANUAL) 4 % (3-13); POLYCHROMASIA 1+; SEGMENTED NEUTROPHILS % (MAN) 92 % (42-78); TOTAL CELLS COUNTED 100
[2019-02-24 04:46] LABS: PLATELET COMMENT ADEQUATE
[2019-02-24 04:47] LABS: ALBUMIN 3.3 g/dL (3.5-5.0); ALKALINE PHOSPHATASE 74 U/L (38-126); ANION GAP 10 (5-19); ASPARTATE AMINO TRANSFERASE 13 U/L (14-36); BILIRUBIN,DIRECT 0.3 mg/dL (0.0-0.4); BILIRUBIN,TOTAL 0.3 mg/dL (0.2-1.3); BLOOD UREA NITROGEN 29 mg/dL (7-20); CALCIUM 8.5 mg/dL (8.4-10.2); CARBON DIOXIDE 27 mmol/L (22-30); CHLORIDE 102 mmol/L (98-107); GLUCOSE 178 mg/dL (75-110); POTASSIUM 4.7 mmol/L (3.6-5.0); TOTAL PROTEIN 6.8 g/dL (6.3-8.2)
[2019-02-24] MEDS: OXYCODONE-ACETAMINOPHEN 5-325 MG TABLET PO PRN ×2 (05:08→16:18)
[2019-02-24] MEDS: PANTOPRAZOLE SODIUM 20 MG TABLET.DR PO SCH (05:08)
[2019-02-24] MEDS: GABAPENTIN 300 MG CAPSULE PO SCH ×3 (05:08→21:53)
[2019-02-24] MEDS: METFORMIN HCL 500 MG TABLET PO SCH ×2 (08:33→16:18)
[2019-02-24] MEDS: INSULIN LISPRO 100 UNIT/ML 3 ML VIAL SUBCUT SCH ×4 (08:34→21:53)
[2019-02-24] MEDS: LOSARTAN POTASSIUM 50 MG TABLET PO SCH (09:53)
[2019-02-24] MEDS: PREDNISONE 20 MG TABLET PO SCH ×2 (09:54→17:39)
[2019-02-24] MEDS: SITAGLIPTIN PHOSPHATE 50 MG TABLET PO SCH (09:54)
[2019-02-24] MEDS: METOPROLOL SUCCINATE 50 MG TAB.SR.24H PO SCH ×2 (09:54→21:53)
[2019-02-24] MEDS: ALLOPURINOL 100 MG TABLET PO SCH ×2 (09:54→17:40)
[2019-02-24] MEDS: AMLODIPINE BESYLATE 5 MG TABLET PO SCH (09:55)
[2019-02-24] MEDS: MAGNESIUM OXIDE 400 MG TABLET PO SCH (09:55)
[2019-02-24] MEDS: FLUTICASONE NASAL SPRAY 50 MCG/SPRY 120 SPRAY/16 GM NASL SCH ×2 (09:56→21:53)
[2019-02-24] MEDS: FLUTICASONE/VILANTEROL 200-25 MCG/DOSE IH SCH (09:56)
[2019-02-24] MEDS: COLCHICINE 0.6 MG TABLET PO SCH ×2 (09:56→21:53)
[2019-02-24] MEDS: TIZANIDINE HCL 4 MG TABLET PO SCH ×2 (09:57→17:39)
[2019-02-24] MEDS: INSULIN GLARGINE,HUM.REC.ANLOG 1,000 UNIT/10 ML VIAL SUBCUT SCH (10:21)
--- NOTE | 2019-02-24 11:56 | PDOC PROGRESS REPORT ---
Subjective Progress Note for:: 02/24/19 Subjective:: 73 year old female with a very complex medical history. She presented to the emergency department yesterday with complaints of numbness in the left foot. She states that there was pain present. She does not have a history of gout. Multiple imaging studies were obtained. There was no evidence of neurologic impairment. X-ray of the foot did show some soft tissue swelling. A uric acid was not obtained but the presumptive diagnosis is gout. They did try to am bulate the patient with a postop shoe. The combination of her morbid obesity and foot pain medic completely unsafe for ambulation and subsequently discharged home. She was referred to the hospital service for admission. 02/22/[id number]-old female admitted for complaints of numbness in the left foot she does not have any history of gout. She has MRI of the brain was done MRI of the lumbar spine was done which were negative x-ray of the foot was done shows soft tissue swelling uric acid level came back as 8.8. She was admitted for severe pain and unable to ambulate. This morning she is still complaining of pain physical therapy came in patient unable to stand as per the physical therap y. We may have to keep her at least another day for further management. To start on prednisone 20 mg p.o. twice daily and allopurinol. Patient is already on colchicine. Is is receiving fentanyl patch . 02/[id number]-old female admitted with gout affecting the left foot yesterday she said she has severe intensity of pain unable to walk all the extensive work- up came back negative uric acid is 8.8 she is receiving colchicine, allopurinol, prednisone and pain medications she is complaining of right toe pain today. Right great toe pain is 3 x 10 as per the patient. Left foot pain is improving. Patient still states she is unable to walk even up to the restroom. Patient's lives alone she is concerned about difficulty in walking prior to going home and she wants to stay at least another day. 02/[id number]-dlds-old female admitted with severe gouty arthritis involving the left foot difficulty in standing a difficulty in ambulation physical therapy working with the patient. They recommended for the patient to stay at least another day and need to go home and frontwheel walker. No acute events in the last 24 hours. Patient is afebrile. Reason For Visit: ACUTE GOUT LEFT FOOT,SEVERE PAIN LEFT FOOT,INABILI Physical Exam Vital Signs: Temp Pulse Resp BP Pulse Ox 97.9 F 58 L 22 H 142/55 H 94 02/24/19 07:26 02/24/19 07:26 02/24/19 07:26 02/24/19 07:26 02/24/19 07:26 Intake & Output 02/23/19 02/24/19 02/25/19 06:59 06:59 06:59 Intake Total 1080 1620 Output Total 500 1300 Balance 580 320 Weight 132.2 kg 129.8 kg General appearance: PRESENT: no acute distress, morbidly obese Head exam: PRESENT: atraumatic Eye exam: PRESENT: PERRLA Mouth exam: PRESENT: dry mucosa Teeth exam: PRESENT: poor dentation Neck exam: ABSENT: carotid bruit, JVD, lymphadenopathy, thyromegaly Respiratory exam: PRESENT: clear to auscultation nitza. ABSENT: rales, rhonchi, wheezes Cardiovascular exam: PRESENT: RRR. ABSENT: diastolic murmur, rubs, systolic murmur GI/Abdominal exam: PRESENT: normal bowel sounds, soft. ABSENT: distended, guarding, mass, organolmegaly, rebound, tenderness Rectal exam: PRESENT: deferred Extremities exam: PRESENT: full ROM. ABSENT: calf tenderness, clubbing, pedal edema Neurological exam: PRESENT: alert, awake, oriented to person, oriented to place, oriented to time, oriented to situation, CN II-XII grossly intact. ABSENT: motor sensory deficit Psychiatric exam: PRESENT: appropriate affect, normal mood. ABSENT: homicidal ideation, suicidal ideation Results Laboratory Results: 02/24/19 03:48 02/24/19 03:48 02/24/19 02/24/19 03:48 03:48 WBC 19.5 H RBC 3.59 L Hgb 9.8 L Hct 31.1 L MCV 87 MCH 27.3 MCHC 31.6 L RDW 17.8 H Plt Count 330 Seg Neutrophils % Not Reportable Lymphocytes % Not Reportable Monocytes % Not Reportable Eosinophils % Not Reportable Basophils % Not Reportable Absolute Neutrophils Not Reportable Absolute Lymphocytes Not Reportable Absolute Monocytes Not Reportable Absolute Eosinophils Not Reportable Absolute Basophils Not Reportable Sodium 138.9 Potassium 4.7 Chloride 102 Carbon Dioxide 27 Anion Gap 10 BUN 29 H Creatinine 1.21 Est GFR ( Amer) 53 L Est GFR (Non-Af Amer) 44 L Glucose 178 H Calcium 8.5 Magnesium 2.0 Total Bilirubin 0.3 AST 13 L Alkaline Phosphatase 74 Total Protein 6.8 Albumin 3.3 L Impressions: Head CT 02/20/19 00:00 IMPRESSION: No acute intracranial findings are seen. Please note that MRI is more sensitive for the evaluation of early infarction, and may be performed if there is high clinical concern. Lumbar Spine X-Ray 02/20/19 00:00 IMPRESSION: No acute findings are seen. However, please note that the generalized osteopenia limits evaluation for subtle or nondisplaced fractures. Consider cross-sectional imaging if there is high clinical concern or point tenderness. Venous Doppler Study 02/20/19 00:00 IMPRESSION: No sonographic evidence of acute DVT within the lower extremities. Head MRI 02/20/19 20:45 IMPRESSION: No evidence to suggest acute infarct Mild age-related atrophy with mild periventricular white matter disease and microvascular ischemic changes Lumbar Spine MRI 02/21/19 03:15 IMPRESSION: 1. Postcontrast images without significant abnormal enhancement within the L3-4 disc space or endplates to suggest discitis. 2. Multilevel degenerative changes and disc bulges, better delineated on recent prior dedicated lumbar MRI. Foot X-Ray 02/21/19 16:34 IMPRESSION: Soft tissue swelling. No osseous findings. Assessment and Plan - Diagnosis (1) Acute gout due to renal impairment involving left foot Is this a current diagnosis for this admission?: Yes Plan: Over the last 18 hours there have been multiple imaging studies. None of which showed any pathology that could be responsible for the patient's "numbness "in her left leg. C-reactive protein and sedimentation rate were very high. A left foot x-ray revealed soft tissue swelling. Uric acid was not obtained but the presumptive diagnosis is acute gouty arthritis. She does have risk factors including her chronic kidney disease and recent use of furosemide. She is currently off of her furosemide. I am going to initiate colchicine 0.6 mg twice daily. Consider systemic prednisone if the colchicine is ineffective. Narcotic analgesia will be available as well. 02/22/2019-patient came in with complaints of severe left foot pain most likely secondary to gouty arthritis. She never a history of gout. Uric acid level is 8.8. Review of the medication was done and she is not on any medications causing gout flareup. Uric acid level is 8.8 she is already on colchicine is to start on allopurinol 100 mg p.o. twice daily and prednisone 20 mg p.o. twice daily. Physical therapy consult was requested. 02/23/[id number]-zqjj-old female admitted with gouty arthritis uric acid is 8.8 at the time of admission plan to repeat the uric acid level today. Extensive work- up is negative for stroke. Patient is on colchicine, allopurinol, prednisone. Creatinine is stable at 1.14. No acute events in the last 24 hours. Patient is expressing desire to stay at least another day today she is complaining of right great toe pain pain scale is 3 x 10 as per the patient. physical Therapy is working with the patient. 02/24/[id number]-wxlj-old female admitted with severe gouty arthritis. Initial uric acid level is 8 point 8 repeat one is 8.0. Patient's symptoms are improving. Patient is presently on prednisone, allopurinol and colchicine. Patient is going to stay another day for physical therapy and will go home with a front wheel walker. (2) Chronic kidney disease, stage III (moderate) Is this a current diagnosis for this admission?: Yes Plan: Renal failure is stable. In fact her creatinine clearance is above 60 with a GFR below 60. Maintain cardiac/diabetic diet. No nephrology consult required at this point. 02/22/2019-patient serum creatinine is 1.06 GFR is more than 60. Urinary output is good. Nonoliguric. 02/23/2019-patient creatinine is 1.14 with a GFR is more than 60. Nonoliguric. Plan is to continue to closely monitor the kidney function. 02/24/2019-patient's serum creatinine is 1.2. GFR is more than 60 nonoliguric. Kidney function is stable plan is to continue to closely monitor the kidney function. (3) Chronic pain syndrome Is this a current diagnosis for this admission?: Yes (4) Diabetes mellitus type 2 in obese Is this a current diagnosis for this admission?: Yes Plan: We will continue the patient's Januvia, metformin and Lantus. Accu-Cheks with meals and at bedtime. Sliding scale per protocol. 02/22/2019-patient has history of diabetes mellitus type 2 to hold metformin during the hospital stay in case if he need a CT scan with IV contrast to continue insulin sliding scale before meals and bed time. Latest blood sugar is 119. Dietary consult was requested. 02/24/2019-patient blood sugar is 184 presently on insulin sliding scale plan is to continue the present management. (5) Essential hypertension Is this a current diagnosis for this admission?: Yes Plan: Currently on multiple medications including amlodipine, metoprolol and losartan. Monitor blood pressure and adjust medications if needed. 02/22/2019-patient's blood pressure today is 119/55 presently on amlodipine, metoprolol and losartan. Plan is to continue the present management. 02/23/2019-patient blood pressure today is 154/71. Stable. Plan is to continue amlodipine, metoprolol and losartan. 02/24/2019-patient blood pressure today is 155/64 stable to continue amlodipine, metoprolol and losartan. (6) Diabetic neuropathy Qualifiers: Diabetes mellitus type: type 2 Diabetes mellitus complication detail: diabetic polyneuropathy Qualified Code(s): E11.42 - Type 2 diabetes mellitus with diabetic polyneuropathy Is this a current diagnosis for this admission?: Yes (7) Morbid obesity with BMI of 40.0-44.9, adult Is this a current diagnosis for this admission?: Yes (8) Paroxysmal atrial fibrillation Is this a current diagnosis for this admission?: Yes Plan: The patient is anticoagulated with Eliquis. We will also continue the metoprolol succinate 100 mg twice daily. 02/22/2019-patient has history of paroxysmal atrial fibrillation heart rate is 74 presently on metoprolol 100 mg p.o. twice a day and on Eliquis. Plan is to continue the present management. 02/24/2019-patient has history of chronic atrial fibrillation heart rate is 68. Presently on metoprolol 100 mg p.o. twice a day and Eliquis plan is to continue the present management. - Time Time Spent with patient: 25-34 minutes Medications reviewed and adjusted accordingly: Yes Anticipated discharge: Home
[2019-02-24] MEDS: RIVAROXABAN 10 MG TABLET PO SCH (17:39)
[2019-02-24] MEDS: ATORVASTATIN CALCIUM 40 MG TABLET PO SCH (21:53)
[2019-02-24] MEDS: CETIRIZINE 5 MG TABLET PO SCH (21:53)
[2019-02-25] MEDS: OXYCODONE-ACETAMINOPHEN 5-325 MG TABLET PO PRN ×3 (00:40→13:32)
[2019-02-25] MEDS ORDERED: DICYCLOMINE HCL 10 MG CAPSULE ONE (02:17)
[2019-02-25] MEDS: GABAPENTIN 300 MG CAPSULE PO SCH ×2 (06:14→13:30)
[2019-02-25] MEDS: PANTOPRAZOLE SODIUM 20 MG TABLET.DR PO SCH (06:14)
[2019-02-25] MEDS: INSULIN LISPRO 100 UNIT/ML 3 ML VIAL SUBCUT SCH ×3 (07:49→16:41)
[2019-02-25] MEDS: METFORMIN HCL 500 MG TABLET PO SCH ×2 (07:49→16:35)
[2019-02-25] MEDS: FLUTICASONE/VILANTEROL 200-25 MCG/DOSE IH SCH (09:07)
[2019-02-25] MEDS: LOSARTAN POTASSIUM 50 MG TABLET PO SCH (09:07)
[2019-02-25] MEDS: COLCHICINE 0.6 MG TABLET PO SCH ×2 (09:07→16:35)
[2019-02-25] MEDS: FLUTICASONE NASAL SPRAY 50 MCG/SPRY 120 SPRAY/16 GM NASL SCH (09:07)
[2019-02-25] MEDS: INSULIN GLARGINE,HUM.REC.ANLOG 1,000 UNIT/10 ML VIAL SUBCUT SCH (09:08)
[2019-02-25] MEDS: AMLODIPINE BESYLATE 5 MG TABLET PO SCH (09:08)
[2019-02-25] MEDS: FENTANYL 25 MCG/HR PATCH.TD72 TD SCH (09:08)
[2019-02-25] MEDS: METOPROLOL SUCCINATE 50 MG TAB.SR.24H PO SCH (09:08)
[2019-02-25] MEDS: SITAGLIPTIN PHOSPHATE 50 MG TABLET PO SCH (09:08)
[2019-02-25] MEDS: PREDNISONE 20 MG TABLET PO SCH ×2 (09:08→16:35)
[2019-02-25] MEDS: ALLOPURINOL 100 MG TABLET PO SCH ×2 (09:09→16:35)
[2019-02-25] MEDS: TIZANIDINE HCL 4 MG TABLET PO SCH ×2 (09:09→16:35)
[2019-02-25] MEDS: MAGNESIUM OXIDE 400 MG TABLET PO SCH (09:09)
--- NOTE | 2019-02-25 12:02 | PDOC DISCHARGE SUMMARY ---
General - Admit/Disc Date/PCP Admission Date/Primary Care Provider: 02/23/19 11:47 SHEREEN KEENE MD Discharge Date: 02/25/19 - Discharge Diagnosis (1) Acute gout due to renal impairment involving left foot Is this a current diagnosis for this admission?: Yes Summary: Over the last 18 hours there have been multiple imaging studies. None of which showed any pathology that could be responsible for the patient's "numbness "in her left leg. C-reactive protein and sedimentation rate were very high. A left foot x-ray revealed soft tissue swelling. Uric acid was not obtained but the presumptive diagnosis is acute gouty arthritis. She does have risk factors including her chronic kidney disease and recent use of furosemide. She is currently off of her furosemide. I am going to initiate colchicine 0.6 mg twice daily. Consider systemic prednisone if the colchicine is ineffective. Narcotic analgesia will be available as well. 02/22/2019-patient came in with complaints of severe left foot pain most likely secondary to gouty arthritis. She never a history of gout. Uric acid level is 8.8. Review of the medication was done and she is not on any medications causing gout flareup. Uric acid level is 8.8 she is already on colchicine is to start on allopurinol 100 mg p.o. twice daily and prednisone 20 mg p.o. twice daily. Physical therapy consult was requested. 02/23/[id number]-hsbo-old female admitted with gouty arthritis uric acid is 8.8 at the time of admission plan to repeat the uric acid level today. Extensive work- up is negative for stroke. Patient is on colchicine, allopurinol, prednisone. Creatinine is stable at 1.14. No acute events in the last 24 hours. Patient is expressing desire to stay at least another day today she is complaining of right great toe pain pain scale is 3 x 10 as per the patient. physical Therapy is working with the patient. 02/24/[id number]-uhzn-old female admitted with severe gouty arthritis. Initial uric acid level is 8 point 8 repeat one is 8.0. Patient's symptoms are improving. Patient is presently on prednisone, allopurinol and colchicine. Patient is going to stay another day for physical therapy and will go home with a front wheel walker. 02/25/[id number]-fnyw-old female admitted with severe pain involving the left foot most likely secondary to gouty arthritis uric acid level is 8.8 at the time of admission improved to 8.0. Patient is going home on colchicine. Pain is as per the patient 0/10 today. Going home with front wheel walker bedside commode home health with PT. (2) Chronic kidney disease, stage III (moderate) Is this a current diagnosis for this admission?: Yes Summary: Renal failure is stable. In fact her creatinine clearance is above 60 with a GFR below 60. Maintain cardiac/diabetic diet. No nephrology consult required at this point. 02/22/2019-patient serum creatinine is 1.06 GFR is more than 60. Urinary output is good. Nonoliguric. 02/23/2019-patient creatinine is 1.14 with a GFR is more than 60. Nonoliguric. Plan is to continue to closely monitor the kidney function. 02/24/2019-patient's serum creatinine is 1.2. GFR is more than 60 nonoliguric. Kidney function is stable plan is to continue to closely monitor the kidney function. 02/25/2019-she has history of CKD creatinine is 1.2 stable. GFR is more than 60. (3) Chronic pain syndrome Is this a current diagnosis for this admission?: Yes (4) Diabetes mellitus type 2 in obese Is this a current diagnosis for this admission?: Yes Summary: We will continue the patient's Januvia, metformin and Lantus. Accu-Cheks with meals and at bedtime. Sliding scale per protocol. 02/22/2019-patient has history of diabetes mellitus type 2 to hold metformin during the hospital stay in case if he need a CT scan with IV contrast to continue insulin sliding scale before meals and bed time. Latest blood sugar is 119. Dietary consult was requested. 02/24/2019-patient blood sugar is 184 presently on insulin sliding scale plan is to continue the present management. 02/25/2019-lip patient latest blood sugar is 73. Patient is insulin sliding scale before meals and at bedtime patient was advised to resume her home medications at the time of discharge. (5) Essential hypertension Is this a current diagnosis for this admission?: Yes (6) Diabetic neuropathy Is this a current diagnosis for this admission?: Yes (7) Morbid obesity with BMI of 40.0-44.9, adult Is this a current diagnosis for this admission?: Yes (8) Paroxysmal atrial fibrillation Is this a current diagnosis for this admission?: Yes Summary: The patient is anticoagulated with Eliquis. We will also continue the metoprolol succinate 100 mg twice daily. 02/22/2019-patient has history of paroxysmal atrial fibrillation heart rate is 74 presently on metoprolol 100 mg p.o. twice a day and on Eliquis. Plan is to continue the present management. 02/24/2019-patient has history of chronic atrial fibrillation heart rate is 68. Presently on metoprolol 100 mg p.o. twice a day and Eliquis plan is to continue the present management. 02/25/2019-patient has history of chronic atrial fibrillation with heart rate of around 58 patient is on metoprolol 100 mg twice a day and Eliquis she is advised to continue the present management. (9) HTN (hypertension) Is this a current diagnosis for this admission?: No Summary: Currently on multiple medications including amlodipine, metoprolol and losartan. Monitor blood pressure and adjust medications if needed. 02/22/2019-patient's blood pressure today is 119/55 presently on amlodipine, metoprolol and losartan. Plan is to continue the present management. 02/23/2019-patient blood pressure today is 154/71. Stable. Plan is to continue amlodipine, metoprolol and losartan. 02/24/2019-patient blood pressure today is 155/64 stable to continue amlodipine, metoprolol and losartan. - Additional Information Resuscitation Status: Do Not Resuscitate Discharge Diet: Diabetic Discharge Activity: Activity As Tolerated Prescriptions: Amlodipine Besylate [Norvasc 5 mg Tablet] 5 mg PO DAILY #30 tablet Colchicine [Colcrys 0.6 mg Tablet] 0.6 mg PO Q12 #30 tablet Home Medications: Amlodipine Besylate [Norvasc 5 mg Tablet] 5 mg PO DAILY 02/21/19 Atorvastatin Calcium [Lipitor 40 mg Tablet] 40 mg PO QHS 02/21/19 Dicyclomine HCl [Bentyl 10 mg Capsule] 10 mg PO Q8 02/21/19 Ergocalciferol (Vitamin D2) [Drisdol 50,000 unit (1.25MG) Capsule] 50,000 unit PO .QWEEKLY 02/21/19 Fentanyl [Duragesic 25 mcg/hr Transdermal Patch] 1 patch TOP Q3D 02/21/19 Gabapentin 600 mg PO Q8 MDD script from pain management 02/21/19 Gabapentin [Neurontin 300 mg Capsule] 300 mg PO Q8 MDD script from PCP 02/21/19 Hydrocodone/Acetaminophen [[place] 7.5-325 Tablet] 1 each PO Q6HP PRN 02/21/19 Insulin Glargine,Hum.rec.anlog [Lantus Insulin 100 Unit/1 ml 10 ml] 24 unit SUBCUT QHS 02/21/19 Levocetirizine Dihydrochloride [Xyzal] 5 mg PO QHS 02/21/19 Losartan Potassium [Cozaar 50 mg Tablet] 100 mg PO DAILY 02/21/19 Magnesium Oxide [Mag-Ox 400 mg Tablet] 400 mg PO DAILY 02/21/19 Metformin HCl [Metformin HCl ER] 1,000 mg PO BIDBS 02/21/19 Metoprolol Succinate [Toprol Xl 50 mg Tab.sr] 100 mg PO Q12 02/21/19 Rivaroxaban [Xarelto] 20 mg PO QPM 02/21/19 Tizanidine HCl [Zanaflex] 2 mg PO BIDP PRN 02/21/19 Amlodipine Besylate [Norvasc 5 mg Tablet] 5 mg PO DAILY #30 tablet 02/25/19 Colchicine [Colcrys 0.6 mg Tablet] 0.6 mg PO Q12 #30 tablet 02/25/19 Metformin HCl [Glucophage 500 mg Tablet] 1,000 mg PO BIDACBS tablet 02/25/19 Sitagliptin Phosphate [Januvia 50 mg Tablet] 100 mg PO DAILY tablet 02/25/19 History of Present Illness History of Present Illness: JOSE ELIAS FUENTES is a 73 year old female 73 year old female with a very complex medical history. She presented to the emergency department yesterday with complaints of numbness in the left foot. She states that there was pain present. She does not have a history of gout. Multiple imaging studies were obtained. There was no evidence of neurologic impairment. X-ray of the foot did show some soft tissue swelling. A uric acid was not obtained but the presumptive diagnosis is gout. They did try to ambulate the patient with a postop shoe. The combination of her morbid obesity and foot pain medic completely unsafe for ambulation and subsequently discharged home. She was referred to the hospital service for admission. Hospital Course Hospital Course: 73 year old female with a very complex medical history. She presented to the emergency department yesterday with complaints of numbness in the left foot. She states that there was pain present. She does not have a history of gout. Multiple imaging studies were obtained. There was no evidence of neurologic impairment. X-ray of the foot did show some soft tissue swelling. A uric acid was not obtained but the presumptive diagnosis is gout. They did try to ambulate the patient with a postop shoe. The combination of her morbid obesity and foot pain medic completely unsafe for ambulation and subsequently discharged home. She was referred to the hospital service for admission. 02/22/[id number]-veuv-old female admitted for complaints of numbness in the left foot she does not have any history of gout. She has MRI of the brain was done MRI of the lumbar spine was done which were negative x-ray of the foot was done shows soft tissue swelling uric acid level came back as 8.8. She was admitted for severe pain and unable to ambulate. This morning she is still complaining of pain physical therapy came in patient unable to stand as per the physical therapy. We may have to keep her at least another day for further management. To start on prednisone 20 mg p.o. twice daily and allopurinol. Patient is already on colchicine. Is is receiving fentanyl patch . 02/23/[id number]-womp-old female admitted with gout affecting the left foot yesterday she said she has severe intensity of pain unable to walk all the extensive work- up came back negative uric acid is 8.8 she is receiving colchicine, allopurinol, prednisone and pain medications she is complaining of right toe pain today. Right great toe pain is 3 x 10 as per the patient. Left foot pain is improving. Patient still states she is unable to walk even up to the restroom. Patient's lives alone she is concerned about difficulty in walking prior to going home and she wants to stay at least another day. 02/24/[id number]-euan-old female admitted with severe gouty arthritis involving the left foot difficulty in standing a difficulty in ambulation physical therapy working with the patient. They recommended for the patient to stay at least another day and need to go home and frontwheel walker. No acute events in the last 24 hours. Patient is afebrile. 02/25/[id number]-lxnb-old female admitted with left foot gouty arthritis severe intense pain. She is going home with a front wheel walker, bedside commode and home health with home PT. No acute events in the hospital stay. Physical Exam Vital Signs: Temp Pulse Resp BP Pulse Ox 97.6 F 51 L 18 144/57 H 99 02/25/19 07:16 02/25/19 07:16 02/25/19 07:16 02/25/19 07:16 02/25/19 07:16 Intake & Output 02/24/19 02/25/19 02/26/19 06:59 06:59 06:59 Intake Total 1620 1220 Output Total 1300 200 Balance 320 1020 Weight 129.8 kg 130.2 kg General appearance: PRESENT: no acute distress Eye exam: PRESENT: PERRLA Mouth exam: PRESENT: moist, tongue midline Teeth exam: PRESENT: poor dentation Neck exam: ABSENT: carotid bruit, JVD, lymphadenopathy, thyromegaly Respiratory exam: PRESENT: clear to auscultation nitza. ABSENT: rales, rhonchi, wheezes Cardiovascular exam: PRESENT: RRR. ABSENT: diastolic murmur, rubs, systolic murmur GI/Abdominal exam: PRESENT: normal bowel sounds, soft. ABSENT: distended, guarding, mass, organolmegaly, rebound, tenderness Rectal exam: PRESENT: deferred Extremities exam: PRESENT: full ROM. ABSENT: calf tenderness, clubbing, pedal edema Neurological exam: PRESENT: alert, awake, oriented to person, oriented to place, oriented to time, oriented to situation, CN II-XII grossly intact. ABSENT: motor sensory deficit Psychiatric exam: PRESENT: appropriate affect, normal mood. ABSENT: homicidal ideation, suicidal ideation Results Laboratory Results: 02/24/19 03:48 02/24/19 03:48 Impressions: Head CT 02/20/19 00:00 IMPRESSION: No acute intracranial findings are seen. Please note that MRI is more sensitive for the evaluation of early infarction, and may be performed if there is high clinical concern. Lumbar Spine X-Ray 02/20/19 00:00 IMPRESSION: No acute findings are seen. However, please note that the generalized osteopenia limits evaluation for subtle or nondisplaced fractures. Consider cross-sectional imaging if there is high clinical concern or point tenderness. Venous Doppler Study 02/20/19 00:00 IMPRESSION: No sonographic evidence of acute DVT within the lower extremities. Head MRI 02/20/19 20:45 IMPRESSION: No evidence to suggest acute infarct Mild age-related atrophy with mild periventricular white matter disease and microvascular ischemic changes Lumbar Spine MRI 02/21/19 03:15 IMPRESSION: 1. Postcontrast images without significant abnormal enhancement within the L3-4 disc space or endplates to suggest discitis. 2. Multilevel degenerative changes and disc bulges, better delineated on recent prior dedicated lumbar MRI. Foot X-Ray 02/21/19 16:34 IMPRESSION: Soft tissue swelling. No osseous findings. Qualifiers - * PATIENT BEING DISCHARGED WITH ANY OF THE FOLLOWING DIAGNOSIS: No VTE patient discharged on overlapping Therapy?: No Acute Heart Failure - Is this a Heart Failure Patient?: No
[2019-02-25 13:10] VITALS: BP 124/57
[2019-02-25] MEDS: RIVAROXABAN 10 MG TABLET PO SCH (16:35)
== END 2019-02-25 16:45 | disposition home health service (06) | DRG 699 ==
LOC: ER 17:47 → INTOOBSV 02-21 18:15 → EH 02-21 18:15 → 5 02-21 19:48 → OBSVTOIN 02-23 11:47
PROVIDERS: ADMIT Hospitalist; ATTEND Hospitalist
DX: M10.372 Gout due to renal impairment, left ankle and foot (principal); Z68.43 Body mass index [BMI] 50.0-59.9, adult; E11.22 Type 2 diabetes mellitus with diabetic chronic kidney disease; I12.9 Hypertensive chronic kidney disease with stage 1 through stage 4 chronic kidney disease, or unspecified chronic kidney disease; N18.3 Chronic kidney disease, stage 3 (moderate); G89.4 Chronic pain syndrome; E11.40 Type 2 diabetes mellitus with diabetic neuropathy, unspecified; E66.01 Morbid (severe) obesity due to excess calories; I48.0 Paroxysmal atrial fibrillation; Z60.2 Problems related to living alone; E78.5 Hyperlipidemia, unspecified; J44.9 Chronic obstructive pulmonary disease, unspecified; Z79.899 Other long term (current) drug therapy; Z79.4 Long term (current) use of insulin; Z96.653 Presence of artificial knee joint, bilateral; Z79.02 Long term (current) use of antithrombotics/antiplatelets; Z88.0 Allergy status to penicillin
CPT/HCPCS: 36415; 70450; 70551; 72100; 72148; 72149; 80053; 80069; 82962; 83735; 84550; 85025; 85652; 86140; 93970; 99285; A9576; J1815; J2270; J3490; J7512

== ENCOUNTER → 2019-09-16 | Outpatient (CLI) | payer MEDICARE, MEDICAID ==
[2019-09-16 23:39] LABS: ABSOLUTE BASOPHILS # (AUTO) 0.1 10^3/uL (0.0-0.2); ABSOLUTE EOSINOPHILS # (AUTO) 0.2 10^3/uL (0.0-0.6); ABSOLUTE LYMPHOCYTES (AUTO) 1.5 10^3/uL (0.5-4.7); ABSOLUTE MONOCYTES (AUTO) 0.6 10^3/uL (0.1-1.4); ABSOLUTE NEUT (AUTO) 4.5 10^3/uL (1.7-8.2); BASOPHILS % (AUTO) 1.3 % (0-2); EOSINOPHILS % (AUTO) 3.1 % (0-6); HEMATOCRIT 37.3 % (36.0-47.0); HEMOGLOBIN 11.9 g/dL (12.0-15.5); LYMPHOCYTES % (AUTO) 22.1 % (13-45); MEAN CORPUSCULAR HEMOGLOBIN 29.2 pg (27.0-33.4); MEAN CORPUSCULAR HGB CONC 31.8 g/dL (32.0-36.0); MEAN CORPUSCULAR VOLUME 92 fl (80-97); MONOCYTES % (AUTO) 8.4 % (3-13); PLATELET COUNT 243 10^3/uL (150-450); RED BLOOD COUNT 4.06 10^6/uL (3.72-5.28); RED CELL DISTRIBUTION WIDTH 14.7 % (11.5-14.0); SEGMENTED NEUTROPHILS % (AUTO) 65.1 % (42-78); TOTAL CELLS COUNTED % (AUTO) 100 %; WHITE BLOOD COUNT 6.9 10^3/uL (4.0-10.5)
[2019-09-16 23:54] LABS: ALBUMIN 4.7 g/dL (3.5-5.0); ALKALINE PHOSPHATASE 94 U/L (38-126); ANION GAP 14 (5-19); ASPARTATE AMINO TRANSFERASE 28 U/L (14-36); BILIRUBIN,DIRECT 0.3 mg/dL (0.0-0.4); BILIRUBIN,TOTAL 0.5 mg/dL (0.2-1.3); BLOOD UREA NITROGEN 20 mg/dL (7-20); CALCIUM 9.8 mg/dL (8.4-10.2); CARBON DIOXIDE 25 mmol/L (22-30); CHLORIDE 103 mmol/L (98-107); GLUCOSE 88 mg/dL (75-110); POTASSIUM 4.4 mmol/L (3.6-5.0); TOTAL PROTEIN 8.7 g/dL (6.3-8.2); TRIGLYCERIDES 141 mg/dL (<150); URIC ACID 8.1 mg/dL (2.5-7.5)
[2019-09-17 00:18] LABS: DIRECT LDL 56 mg/dL (<100)
--- NOTE | 2019-09-17 08:50 | RADIOLOGY REPORT (SQ) ---
EXAM DESCRIPTION: CERV SP 4 OR 5 VIEWS COMPLETED DATE/TIME: 09/16/2019 11:09 pm REASON FOR STUDY: CERVICALGIA COMPARISON: AP, lateral, oblique, odontoid and swimmer's views of the cervical spine from 03/12/2016. NUMBER OF VIEWS: 6 views. TECHNIQUE: AP, lateral, obliques, swimmer's and odontoid radiographic images acquired of the cervica l spine. LIMITATIONS: None. FINDINGS: MINERALIZATION: Normal. ALIGNMENT: There is straightening of the normal lordotic curvature of the cervical spine with grade 1 anterolisthesis of C4 relative to C5. There is no atlantoaxial dissociation. VERTEBRAE: The cervical vertebral body heights are preserved. DISCS: The intervertebral disc spaces from C3-C4 to C7-T1 are narrowed. FORAMINA: Mild to moderate osteophytic foraminal stenosis on the right at C3-C4 and moderate osteophy tic foraminal stenosis on the left at C3-C4 and C4-C5. LATERAL AND POSTERIOR ELEMENTS: Intact. HARDWARE: None in the spine. SOFT TISSUES: No abnormality. OTHER: No other finding. IMPRESSION: Degenerative spondylosis and facet arthropathy of the cervical spine as detailed above s ome with a moderate degree of foraminal stenosis on the left at C3-C4 and C4-C5. TECHNICAL DOCUMENTATION: JOB ID: [id number] 2010 [employer]- All Rights Reserved Reading location - IP/workstation name: [email or web address]
== END ==
LOC: RAD 22:33
PROVIDERS: ATTEND Family Medicine Geriatric Medicine
DX: M10.9 Gout, unspecified (principal); I10 Essential (primary) hypertension; E78.5 Hyperlipidemia, unspecified; E11.21 Type 2 diabetes mellitus with diabetic nephropathy; M54.2 Cervicalgia; M47.892 Other spondylosis, cervical region; M48.02 Spinal stenosis, cervical region; Z79.899 Other long term (current) drug therapy
CPT/HCPCS: 36415; 72050; 80053; 80061; 83036; 83735; 84550; 85025

== ENCOUNTER → 2020-03-18 | Outpatient (CLI) | payer MEDICARE, MEDICAID ==
[2020-03-18 14:32] LABS: ABSOLUTE BASOPHILS # (AUTO) 0.1 10^3/uL (0.0-0.2); ABSOLUTE EOSINOPHILS # (AUTO) 0.3 10^3/uL (0.0-0.6); ABSOLUTE LYMPHOCYTES (AUTO) 1.9 10^3/uL (0.5-4.7); ABSOLUTE MONOCYTES (AUTO) 0.6 10^3/uL (0.1-1.4); ABSOLUTE NEUT (AUTO) 4.7 10^3/uL (1.7-8.2); BASOPHILS % (AUTO) 1.1 % (0-2); EOSINOPHILS % (AUTO) 4.1 % (0-6); HEMATOCRIT 31.5 % (36.0-47.0); HEMOGLOBIN 10.4 g/dL (12.0-15.5); LYMPHOCYTES % (AUTO) 24.8 % (13-45); MEAN CORPUSCULAR HEMOGLOBIN 30.5 pg (27.0-33.4); MEAN CORPUSCULAR HGB CONC 32.9 g/dL (32.0-36.0); MEAN CORPUSCULAR VOLUME 93 fl (80-97); PLATELET COUNT 170 10^3/uL (150-450); RED CELL DISTRIBUTION WIDTH 16.1 % (11.5-14.0); TOTAL CELLS COUNTED % (AUTO) 100 %; WHITE BLOOD COUNT 7.6 10^3/uL (4.0-10.5)
[2020-03-18 14:35] LABS: ABSOLUTE BASOPHILS # (AUTO) 0.1 10^3/uL (0.0-0.2); ABSOLUTE EOSINOPHILS # (AUTO) 0.3 10^3/uL (0.0-0.6); ABSOLUTE LYMPHOCYTES (AUTO) 1.9 10^3/uL (0.5-4.7); ABSOLUTE MONOCYTES (AUTO) 0.6 10^3/uL (0.1-1.4); ABSOLUTE NEUT (AUTO) 4.7 10^3/uL (1.7-8.2); BASOPHILS % (AUTO) 1.1 % (0-2); EOSINOPHILS % (AUTO) 4.1 % (0-6); HEMATOCRIT 31.5 % (36.0-47.0); HEMOGLOBIN 10.4 g/dL (12.0-15.5); LYMPHOCYTES % (AUTO) 24.8 % (13-45); MEAN CORPUSCULAR HEMOGLOBIN 30.5 pg (27.0-33.4); MEAN CORPUSCULAR HGB CONC 32.9 g/dL (32.0-36.0); MEAN CORPUSCULAR VOLUME 93 fl (80-97); PLATELET COUNT 170 10^3/uL (150-450); RED CELL DISTRIBUTION WIDTH 16.1 % (11.5-14.0); TOTAL CELLS COUNTED % (AUTO) 100 %; WHITE BLOOD COUNT 7.6 10^3/uL (4.0-10.5)
[2020-03-18 15:00] LABS: ANION GAP 9 (5-19); BLOOD UREA NITROGEN 25 mg/dL (7-20); CARBON DIOXIDE 27 mmol/L (22-30); CHLORIDE 103 mmol/L (98-107); CHOLESTEROL 102.27 mg/dL (0-200); GLUCOSE 84 mg/dL (75-110); POTASSIUM 4.3 mmol/L (3.6-5.0); TRIGLYCERIDES 82 mg/dL (<150); URIC ACID 6.4 mg/dL (2.5-7.5)
[2020-03-18 15:12] LABS: DIRECT LDL 43 mg/dL (<100)
[2020-03-18 15:36] LABS: ANION GAP 9 (5-19); BLOOD UREA NITROGEN 25 mg/dL (7-20); CARBON DIOXIDE 27 mmol/L (22-30); CHLORIDE 103 mmol/L (98-107); GLUCOSE 84 mg/dL (75-110); POTASSIUM 4.3 mmol/L (3.6-5.0)
[2020-03-18 15:44] LABS: IRON(TIBC) 52.4 ug/dL (37-170)
== END ==
LOC: OD 13:19
PROVIDERS: ATTEND Internal Medicine Nephrology
DX: I12.9 Hypertensive chronic kidney disease with stage 1 through stage 4 chronic kidney disease, or unspecified chronic kidney disease (principal); N18.3 Chronic kidney disease, stage 3 (moderate); E11.21 Type 2 diabetes mellitus with diabetic nephropathy; M10.9 Gout, unspecified; E83.42 Hypomagnesemia; D50.9 Iron deficiency anemia, unspecified; Z79.899 Other long term (current) drug therapy
CPT/HCPCS: 36415; 80048; 80061; 82728; 83036; 83540; 83550; 83735; 84460; 84550; 85025

== ENCOUNTER → 2020-04-07 | Outpatient (CLI) | payer MEDICARE, MEDICAID ==
[2020-04-07 16:46] LABS: ABSOLUTE BASOPHILS # (AUTO) 0.1 10^3/uL (0.0-0.2); ABSOLUTE EOSINOPHILS # (AUTO) 0.2 10^3/uL (0.0-0.6); ABSOLUTE LYMPHOCYTES (AUTO) 1.3 10^3/uL (0.5-4.7); ABSOLUTE MONOCYTES (AUTO) 0.6 10^3/uL (0.1-1.4); ABSOLUTE NEUT (AUTO) 5.5 10^3/uL (1.7-8.2); BASOPHILS % (AUTO) 1.3 % (0-2); EOSINOPHILS % (AUTO) 2.7 % (0-6); HEMATOCRIT 30.6 % (36.0-47.0); HEMOGLOBIN 10.2 g/dL (12.0-15.5); LYMPHOCYTES % (AUTO) 16.7 % (13-45); MEAN CORPUSCULAR HGB CONC 33.3 g/dL (32.0-36.0); MEAN CORPUSCULAR VOLUME 93 fl (80-97); MONOCYTES % (AUTO) 8.1 % (3-13); PLATELET COUNT 177 10^3/uL (150-450); RED CELL DISTRIBUTION WIDTH 16.3 % (11.5-14.0); SEGMENTED NEUTROPHILS % (AUTO) 71.2 % (42-78); TOTAL CELLS COUNTED % (AUTO) 100 %; WHITE BLOOD COUNT 7.7 10^3/uL (4.0-10.5)
[2020-04-07 17:20] LABS: ANION GAP 8 (5-19); BLOOD UREA NITROGEN 18 mg/dL (7-20); CARBON DIOXIDE 31 mmol/L (22-30); CHLORIDE 101 mmol/L (98-107); POTASSIUM 4.2 mmol/L (3.6-5.0); URIC ACID 5.1 mg/dL (2.5-7.5)
[2020-04-07 17:24] LABS: GLUCOSE 67 mg/dL (75-110)
== END ==
LOC: OD 15:22
PROVIDERS: ATTEND Physician Assistant Medical
DX: M54.5 Low back pain (principal); M10.9 Gout, unspecified; E78.5 Hyperlipidemia, unspecified; E83.42 Hypomagnesemia; N18.3 Chronic kidney disease, stage 3 (moderate); Z79.899 Other long term (current) drug therapy
CPT/HCPCS: 36415; 80048; 83735; 84550; 85025

== ENCOUNTER → 2020-05-22 | Outpatient (CLI) | payer MEDICAID, MEDICARE ==
--- NOTE | 2020-05-23 09:40 | RADIOLOGY REPORT (SQ) ---
EXAM DESCRIPTION: CT HEAD WITHOUT IMAGES COMPLETED DATE/TIME: 05/22/2020 5:15 pm REASON FOR STUDY: S09.90XA UNSPECIFIED INJURY OF HEAD, INITIAL ENCOUNTER S09.90XA UNSPECIFIED INJUR Y OF HEAD, INITIAL ENCOUNTER COMPARISON: 02/20/2019 TECHNIQUE: Axial images acquired through the brain without intravenous contrast. Images reviewed wi th bone, brain and subdural windows. Additional sagittal and coronal reconstructions were generated. Images stored on PACS. All CT scanners at this facility use dose modulation, iterative reconstruction, and/or weight based d osing when appropriate to reduce radiation dose to as low as reasonably achievable (ALARA). [facility]: Dose Right [facility]: CareDose [facility]: Dose Right [facility]: Teradose 4D [facility]: [employer] RADIATION DOSE: CT Rad equipment meets quality standard of care and radiation dose reduction techniq ues were employed. CTDIvol: 49.1 mGy. DLP: 1135 mGy-cm. mGy. LIMITATIONS: None. FINDINGS: VENTRICLES: Prominent. CEREBRUM: No masses. No hemorrhage. No midline shift. Areas of low density in the white matter mos t likely due to chronic micro-vascular ischemic change. No evidence for acute infarction. CEREBELLUM: No masses. No hemorrhage. No alteration of density. No evidence for acute infarction. EXTRAAXIAL SPACES: Mild age-related involutional change. No fluid collections. No masses. ORBITS AND GLOBE: No intra- or extraconal masses. Normal contour of globe without masses. CALVARIUM: No fracture. PARANASAL SINUSES: No fluid or mucosal thickening. SOFT TISSUES: No mass or hematoma. OTHER: No other significant finding. IMPRESSION: MILD CHRONIC CHANGES OF ATROPHY AND MICROVASCULAR ISCHEMIA. NO ACUTE PROCESS. EVIDENCE OF ACUTE STROKE: NO. TECHNICAL DOCUMENTATION: JOB ID: [id number] Quality ID # [id number]: Final reports with documentation of one or more dose reduction techniques (e.g., Au tomated exposure control, adjustment of the mA and/or kV according to patient size, use of iterative reconstruction technique) 2010 [employer]- All Rights Reserved Reading location - IP/workstation name: [email or web address]
--- NOTE | 2020-05-23 09:42 | RADIOLOGY REPORT (SQ) ---
EXAM DESCRIPTION: CT CERVICAL SPINE COMBO IMAGES COMPLETED DATE/TIME: 05/22/2020 5:15 pm REASON FOR STUDY: M54.2 CERVICALGIA S09.90XA UNSPECIFIED INJURY OF HEAD, INITIAL ENCOUNTER COMPARISON: None. TECHNIQUE: Axial images acquired through the cervical spine without intravenous contrast. Images re viewed with lung, soft tissue and bone windows. Reconstructed coronal and sagittal MPR images review ed. Images stored on PACS. All CT scanners at this facility use dose modulation, iterative reconstruction, and/or weight based d osing when appropriate to reduce radiation dose to as low as reasonably achievable (ALARA). [facility]: Dose Right [facility]: CareDose [facility]: Dose Right [facility]: Teradose 4D [facility]: [employer] RADIATION DOSE: mGy. LIMITATIONS: None. FINDINGS: ALIGNMENT: Grade 1 anterolisthesis of C4 on C5. MINERALIZATION: Normal. VERTEBRAL BODIES: No fractures or dislocation. DISCS: Multilevel disc space narrowing with osteophytes. FACETS, LATERAL MASSES, POSTERIOR ELEMENTS: Facet arthropathy. No fractures. No dislocation. No ac [place] findings. HARDWARE: None in the spine. VISUALIZED RIBS: No fractures. LUNG APICES AND SOFT TISSUES: No significant or acute findings. OTHER: No other significant finding. IMPRESSION: CHRONIC DEGENERATIVE CHANGES. NO ACUTE FINDINGS. TECHNICAL DOCUMENTATION: JOB ID: [id number] Quality ID # [id number]: Final reports with documentation of one or more dose reduction techniques (e.g., Au tomated exposure control, adjustment of the mA and/or kV according to patient size, use of iterative reconstruction technique) 2010 [employer]- All Rights Reserved Reading location - IP/workstation name: [email or web address]
== END ==
LOC: RAD 14:54
PROVIDERS: ATTEND Family Medicine Geriatric Medicine
DX: S09.90XA Unspecified injury of head, initial encounter (principal); X58.XXXA Exposure to other specified factors, initial encounter; M54.2 Cervicalgia
CPT/HCPCS: 70450; 72127; 82565

== ENCOUNTER → 2020-06-25 | Outpatient (CLI) | payer MEDICARE, MEDICAID ==
[2020-06-25 20:34] LABS: ABSOLUTE BASOPHILS # (AUTO) 0.1 10^3/uL (0.0-0.2); ABSOLUTE EOSINOPHILS # (AUTO) 0.3 10^3/uL (0.0-0.6); ABSOLUTE LYMPHOCYTES (AUTO) 1.1 10^3/uL (0.5-4.7); ABSOLUTE MONOCYTES (AUTO) 0.6 10^3/uL (0.1-1.4); BASOPHILS % (AUTO) 1.1 % (0-2); EOSINOPHILS % (AUTO) 2.6 % (0-6); HEMATOCRIT 31.1 % (36.0-47.0); HEMOGLOBIN 9.8 g/dL (12.0-15.5); LYMPHOCYTES % (AUTO) 10.9 % (13-45); MEAN CORPUSCULAR HEMOGLOBIN 29.6 pg (27.0-33.4); MEAN CORPUSCULAR HGB CONC 31.4 g/dL (32.0-36.0); MEAN CORPUSCULAR VOLUME 94 fl (80-97); MONOCYTES % (AUTO) 5.5 % (3-13); PLATELET COUNT 237 10^3/uL (150-450); RED BLOOD COUNT 3.31 10^6/uL (3.72-5.28); RED CELL DISTRIBUTION WIDTH 16.2 % (11.5-14.0); SEGMENTED NEUTROPHILS % (AUTO) 79.9 % (42-78); TOTAL CELLS COUNTED % (AUTO) 100 %
[2020-06-25 20:57] LABS: ALBUMIN 3.9 g/dL (3.5-5.0); ANION GAP 5 (5-19); BLOOD UREA NITROGEN 20 mg/dL (7-20); CALCIUM 9.3 mg/dL (8.4-10.2); CARBON DIOXIDE 31 mmol/L (22-30); CHLORIDE 100 mmol/L (98-107); GLUCOSE 89 mg/dL (75-110); PHOSPHORUS 4.3 mg/dL (2.5-4.5); POTASSIUM 4.7 mmol/L (3.6-5.0)
[2020-06-26 11:38] LABS: APPEARANCE,URINE SLIGHTLY-CLOUDY; BILIRUBIN,URINE NEGATIVE (NEGATIVE); COLOR,URINE YELLOW; GLUCOSE, URINE NEGATIVE (NEGATIVE); KETONES,URINE NEGATIVE (NEGATIVE); LEUKOCYTE ESTERASE,URINE NEGATIVE (NEGATIVE); NITRITE,URINE NEGATIVE (NEGATIVE); PROTEIN,URINE NEGATIVE (NEGATIVE); UROBILINOGEN,URINE NEGATIVE mg/dL (<2.0)
== END ==
LOC: LAB 20:02
PROVIDERS: ATTEND Physician Assistant Medical
DX: N18.30 Chronic kidney disease, stage 3 unspecified (principal)
CPT/HCPCS: 36415; 80069; 81001; 83970; 85025

== ENCOUNTER → 2020-07-14 | Outpatient (CLI) | payer MEDICARE, MEDICAID ==
--- NOTE | 2020-07-14 13:09 | RADIOLOGY REPORT (SQ) ---
EXAM DESCRIPTION: CT LUNG CANCER SCREENING IMAGES COMPLETED DATE/TIME: 07/14/2020 10:23 am REASON FOR STUDY: (Z87.891)PERSONAL HISTORY OF NICOTINE DEPENDENCE Z87.891 PERSONAL HISTORY OF ANILA HILARIO DEPENDENCE Has the patient had a Chest CT scan within the past year? N Was the patient offered tobacco cessation counseling? Y Was the patient engaged in shared decision making for this test? Y Does the patient have signs or symptoms of Lung Cancer? N Is the patient a smoker? N How many pack years? 53YR How many years since quitting smoking? 12YR Patients age: 75 COMPARISON: 09/29/2017 TECHNIQUE: Low Dose CT scan performed of the chest without intravenous contrast for purposes of scre ening for lung cancer. Images reviewed with lung, soft tissue and bone windows. Reconstructed coron al and sagittal MPR images reviewed. All images stored on PACS. All CT scanners at this facility use dose modulation, iterative reconstruction, and/or weight based d osing when appropriate to reduce radiation dose to as low as reasonably achievable (ALARA). [facility]: Dose Right [facility]: CareDose [facility]: Dose Right [facility]: Teradose 4D [facility]: [employer] RADIATION DOSE: CT Rad equipment meets quality standard of care and radiation dose reduction techniq ues were employed. CTDIvol: NaN mGy. DLP: 0 mGy-cm. mGy. . LIMITATIONS: No technical limitations. FINDINGS: LUNG NODULES: Stable 3 mm left upper lobe nodule (series 3, image 46). No additional dis crete suspicious pulmonary nodules REMAINING LUNGS AND PLEURA: No pleural effusions or calcifications. No pneumothorax. Mild scarr ing at the right middle lobe and left lung base. HILAR AND MEDIASTINAL STRUCTURES: No identified masses. No abnormal nodes. HEART AND VASCULAR STRUCTURES: No aortic aneurysm. No pericardial effusion. No cardiac devices. CORONARY ARTERY CALCIFICATIONS: Mild scattered calcified coronary plaque. UPPER ABDOMEN, THYROID, BONES, OTHER SOFT TISSUES: No acute findings. Levoconvex thoracolumbar curva ture. IMPRESSION: BENIGN FINDINGS IN THE LUNGS. NO OTHER CLINICALLY SIGNIFICANT/POTENTIALLY CLINICALLY SIGNIFICANT FINDINGS LUNGRADS: LUNGRADS: 2 BENIGN APPEARANCE OR BEHAVIOR. NODULES WITH A VERY LOW LIKELIHOOD OF BECOMING A CLINICALLY ACTIVE CANCER DUE TO SIZE OR LACK OF GROWTH. MODIFIER: NONE. RECOMMENDATION: Continue annual screening with LDCT in 12 months. COMMENT: CRITERIA: Solid nodule(s): < 6 mm; new < 4 mm. Part solid nodule(s): < 6 mm total diameter on baseline screening. Non solid nodule(s) (GGN): < 20 mm OR ? 20 and unchanged or slowly growing. Category 3 or 4 nodules unchanged for ? 3 months. TECHNICAL DOCUMENTATION: JOB ID: [id number] Quality ID # [id number]: Final reports with documentation of one or more dose reduction techniques (e.g., Au tomated exposure control, adjustment of the mA and/or kV according to patient size, use of iterative reconstruction technique) 2010 [facility] Reading location - IP/workstation name: [email or web address]
== END ==
LOC: RAD 10:01
PROVIDERS: ATTEND Registered Nurse
DX: Z12.2 Encounter for screening for malignant neoplasm of respiratory organs (principal); R91.8 Other nonspecific abnormal finding of lung field; I25.10 Atherosclerotic heart disease of native coronary artery without angina pectoris; Z87.891 Personal history of nicotine dependence
CPT/HCPCS: G0297

== ENCOUNTER → 2020-07-25 | Outpatient (CLI) | payer MEDICARE, MEDICAID ==
--- NOTE | 2020-07-25 09:59 | ER RDC ASSESSMENT REPORT ---
Intake - In the Last 14 days Have you traveled outside [place]?: No Have you been in close contact with someone CONFIRMED: No Worked in Healthcare?: No - Symptoms Subjective Fever([place] feverish): No Chills: No Muscule Aches: No Runny Nose: No Sore Throat: No Cough (New or worsening chronic cough): No Shortness of breath: No Nausea or Vomiting: No Headache: No Abdominal Pain: No Diarrhea(3 or more loose stools in last 24 hours): No - Do you have any of the following Chronic lung disease: Asthma or emphysema or COPD: Yes Cystic Fibrosis: No Diabetes: Yes High Blood Pressure: Yes Cardiovascular Disease: Yes Chronic Kidney Disease: No Chronic Liver Disease: No Chronic blood disorder like Sickle Cell Disease: No Weak immune system due to disease or medication: No Neurologic condition that limits movement: No Developmental delay - Moderate to Severe: No Recent (within past 2 weeks) or current : No Morbid Obesity (>100 pounds over ideal weight): Yes - Objective Temperature: 98.1 F Pulse Rate: 64 Respiratory Rate: 15 Blood Pressure: 133/62 O2 Sat by Pulse Oximetry: 90 - baseline, on supplemental O2 2LPM Objective: Given above, testing performed: covid Disposition: Home; Selfcare General - General Stated Complaint: asymptomatic covid test Time Seen by Provider: 07/25/20 09:30 Mode of Arrival: Ambulatory Information source: Patient - [facility] Notes: Patient presents to clinic for COVID-19 testing. Patient is asymptomatic and has had no known contact with Covid positive individual. They deny any cough, shortness of breath, fever, chills, muscle aches, rhinorrhea, sore throat, nausea or vomiting, headache, abdominal pain or diarrhea. Patient has no acute medical concerns. - Related Data Allergies/Adverse Reactions: penicillinase Allergy (Verified 11/12/17 17:57) Penicillins Allergy (Verified 11/12/17 17:57) Past Medical History - General Information source: Patient - Social History Smoking Status: Never Smoker Family History: DM, Malignancy - Pancreatic cancer, Other - Muscular dystrophy - Past Medical History Cardiac Medical History: Reports: Hx Atrial Fibrillation, Hx Hypercholesterolemia, Hx Hypertension Pulmonary Medical History: Reports: Hx COPD EENT Medical History: Reports: None Neurological Medical History: Reports: None. Denies: Hx Migraine Endocrine Medical History: Reports: Hx Diabetes Mellitus Type 2 Renal/ Medical History: Reports: Hx End Stage Renal Disease - CKD III. Denies: Hx Peritoneal Dialysis Malignancy Medical History: Reports: None GI Medical History: Reports: Hx Gastroesophageal Reflux Disease Musculoskeletal Medical History: Reports Hx Arthritis - Osteoarthritis multiple joints, Denies Hx Gout Skin Medical History: Reports None Psychiatric Medical History: Reports: None Denies: Hx Dementia, Hx Depression Traumatic Medical History: Reports: None Infectious Medical History: Reports: None Past Surgical History: Reports: Hx Cardiac Catheterization, Hx Cholecystectomy, Hx Hysterectomy, Hx Orthopedic Surgery - Bilateral knee replacements, Other - Cardiac ablation, colonoscopy Physical Exam - General General appearance: Appears well, Alert In distress: None Notes: PHYSICAL EXAMINATION: GENERAL: Well-appearing and in no acute distress. HEAD: Atraumatic, normocephalic. EYES: sclera anicteric, conjunctiva are normal. ENT: nares patent. Moist mucous membranes. NECK: Normal range of motion, supple without lymphadenopathy. LUNGS: No increased work of breathing on 2 L/min supplemental oxygen. Lung sounds CTAB and equal. No wheezes rales or rhonchi. HEART: Regular rate and rhythm without murmurs. ABDOMEN: Soft, nontender, normal bowel sounds, no guarding. EXTREMITIES: Normal range of motion, no pitting edema. No cyanosis. NEUROLOGICAL: A&O x 3. Normal speech. PSYCH: Normal mood, normal affect. SKIN: Warm, Dry, normal turgor, no rashes or lesions noted Patient Education/Counseling Counseling/Education: Patient presents for COVID 19 testing. Patient is asymptomatic at this time. Patient is at her baseline oxygen supplementation requirement of 2 L/min. Patient does not have emergency worrying symptoms such as difficulty breathing, shortness of breath, chest pain, pressure, confusion or cyanosis. Patient appears suitable for discharge as vital signs are stable and patient is nontoxic in appearance. Good return precautions have been discussed with patient, patient verbalized understanding and is agreeable with discharge plan of care at this time. Guidance for worsening S/SX: As a person under investigation for Covid 19, the [facility] of Health and Human Services, division of public health advises you to adhere to the following guidance until your test results are reported to you. If your test result is positive, you will receive additional information from your provider and your local health department at that time. Remain at home until you are cleared by the health provider or public health authorities. Keep a log of visitors to your home, notify any visitors to your home of your isolation status. If you plan to move to a new address or leave the county, notify the local health department in your County. Call your doctor or seek care if you have an urgent medical need. Before seeking medical care, call ahead to get instructions from the provider before arriving at the medical office clinic or hospital. Notify them that you are being tested for the virus that causes Covid 19 so that arrangements can be made, as necessary, to prevent transmission to others in the healthcare setting. Next, notify the local health department in your county. If a medical emergency arises and you need to call 911, inform the first responders that you are being tested for the virus that causes Covid 19. Next, notify the local health department in your county. RDC Discharge - Discharge Clinical Impression: Encounter for screening laboratory testing for COVID-19 virus Condition: Good Disposition: Home; Selfcare
[2020-07-25 10:00] VITALS: BP 133/62
== END ==
LOC: RDC 08:45
PROVIDERS: ATTEND Registered Nurse
DX: Z20.822 Contact with and (suspected) exposure to COVID-19 (principal); I12.9 Hypertensive chronic kidney disease with stage 1 through stage 4 chronic kidney disease, or unspecified chronic kidney disease; N18.30 Chronic kidney disease, stage 3 unspecified; E11.22 Type 2 diabetes mellitus with diabetic chronic kidney disease; E78.00 Pure hypercholesterolemia, unspecified; J44.9 Chronic obstructive pulmonary disease, unspecified; K21.9 Gastro-esophageal reflux disease without esophagitis; E66.01 Morbid (severe) obesity due to excess calories; M19.90 Unspecified osteoarthritis, unspecified site; Z96.653 Presence of artificial knee joint, bilateral; Z88.0 Allergy status to penicillin
CPT/HCPCS: U0003; C9803; 87635; 99202; 99211